=== PATIENT | female | born 1965 | race Caucasian/White ===

== ENCOUNTER 2022-06-07 12:27 | Outpatient (CLI) | payer MEDICARE, MEDICAID, SELFPAY ==
--- NOTE | 2022-06-08 10:57 | P.NEURO_ITS ---
Neurology EEG Report General Information Date of Study: 06/07/22 TEST eeg DIAGNOSIS Convulsion CONDITION OF RECORDING awake drowsy and sleep EEG NUMBER [id number] CLINICAL HISTORY patient reports she is having episodes of blacking out and confusion EEG DESCRIPTION low-voltage 15 to 18 hertz per 2nd beta activity seen during drowsiness with intermittent low-voltage 10 to 11 hertz per 2nd alpha posteriorly Bilateral symmetrical sleep activity seen during sleep with admixed beta and theta and delta activity evolving into bilateral symmetrical sleep spindles. Non paroxysmal nonfocal nonlateralizing. Hyperventilation not done photic stimul ation produced normal drive IMPRESSION normal record during wakefulness drowsiness and sleep with activating measures as well. Clinical correlation recommended
== END 2022-06-07 12:28 | disposition home or self-care (01) ==
LOC: ANHNEURO 12:29
PROVIDERS: PCP Internal Medicine Infectious Disease; Visit Provider Family Medicine
DX: R56.9 Unspecified convulsions (principal)
CPT/HCPCS: 95816

== ENCOUNTER 2023-08-18 14:43 | Outpatient (CLI) | payer MEDICARE, MEDICAID, SELFPAY ==
--- NOTE | ~2023-08-18 | CT_ITS ---
EXAMINATION: CT abdomen pelvis wo con DATE: 08/18/2023 15:32 INDICATION: Incisional hernia without obstruction. TECHNIQUE: Computed tomography (CT) of the abdomen and pelvis was performed without intravenous contr ast. Automated exposure control and iterative reconstruction technique were employed. The dose-length product was 598.05 mGy-cm. COMPARISON: CT abdomen and pelvis 04/17/2013 FINDINGS: The visualized portions of the lung bases demonstrate mild atelectasis. A calcified left jena ng nodule is consistent with old granulomatous disease. No pleural effusion. The heart size is normal . No pericardial effusion. The liver is normal. There are changes of cholecystectomy. Calcifications in the spleen are consistent with old granulomatous disease. The pancreas and adrenal glands are norm al. Right kidney are normal. There is cortical thinning of left kidney. There is no urolithiasis. The re is a ventral hernia containing nonobstructed transverse colon and small bowel. There is chronic rincon bcutaneous scarring in anterior abdominal wall at the midline. There is diverticulosis of the colon w ithout evidence of diverticulitis. The appendix is normal. There are no pathologically enlarged lymph nodes. There is no free intraperitoneal fluid. There is a 3.4 cm peripherally calcified mass in left abdomen, consistent with old fat necrosis. There is severe thoracic and lumbar spondylosis. IMPRESSION: 1. Ventral hernia containing nonobstructed colon and small bowel. Reviewed, dictated and finalized at location E.
== END 2023-08-18 14:44 | disposition home or self-care (01) ==
PROVIDERS: PCP Nurse Practitioner Family; Visit Provider Surgery
DX: K43.0 Incisional hernia with obstruction, without gangrene (principal)
CPT/HCPCS: 74176

== ENCOUNTER 2024-09-19 15:18 | Outpatient (CLI) | payer MEDICARE, MEDICAID, SELFPAY ==
--- NOTE | ~2024-09-19 | CT_ITS ---
CT Scan of the Chest without Contrast: Clinical Indication: Lung cancer screening, nicotine dependence Technique: Contiguous sections were acquired throughout the chest without intravenous contrast. Dose reduction technique was used on this scan by utilizing automated exposure control and iterative recon struction technique. The dose-length product (DLP) was 110.11 mGy-cm. Findings: There is no evidence of any significant mediastinal, hilar or axillary lymphadenopathy. The mediastin al soft tissues appear normal. There is no evidence of pleural or pericardial effusion. Calcified left lower lobe granuloma present. Lungs are otherwise clear. Images through the upper abdomen reveal densely calcified mass or lesion in the left upper quadrant m easuring 3.3 cm in diameter, stable from prior exam dated 08/18/2023, compatible with chronic fat necr osis.. Impression: Lung RADS 2: Benign appearance. 12 month follow-up screening CT advised. Reviewed, dictated and finalized at [facility]. Impression: Lung RADS 2: Benign appearance. 12 month follow-up screening CT advised.
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
--- OUTSIDE RECORDS SUMMARY | 2024-09-19 15:22 | XMS_ITS | Referral Summary ---
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 Congestive heart failure 01/03/2022 Bipolar disorder 01/03/2022 Gastroesophageal reflux disease 01/03/2022 Blood clotting disorder 01/03/2022 Type 2 diabetes mellitus 11/11/2021 Thyroid nodule 07/07/2021 Kyphosis of thoracic region 05/23/2021 Hernia of anterior abdominal wall 05/23/2021 History of total hysterectomy 08/11/2020 Tobacco dependence syndrome 09/25/2018 Benign essential hypertension 08/03/2017 Abnormal mammogram 02/28/2011 Social History Tobacco Use Types Packs/Day Years Used Date Smoking Tobacco: Every Day Cigarettes 0.3 54.5 Started: 04/03/1970 Tobacco Cessation:Ready to Q uit: No; Counseling Given: Not Answered Comments No Sex and Gender Information Value Date Recorded Sex Assigned at Not on file Legal Sex Female 6:24 AM FIRING PIN GAUGER Gender Identity Female 02/13/2022 10:59 PM FIRING PIN GAUGER Sexual Orientation Straight 02/13/2022 10 :59 PM FIRING PIN GAUGER Last Filed Vital Signs Vital Sign Reading [...] 01/03/2022 10:29 AM CDT Plan of Treatment Not on file Insurance IDPA [facility] MEDICARE ADVANTAGE [facility] MEDICARE [id number] IDPA [facility] MEDICARE ADVANTAGE [facility] MEDICARE ADVANTAGE IDPA Care Teams Human Resources Representative Relationship Specialty [place] [address] [place] [id number] PCP - General Internal Medicine 09/27/21
--- OUTSIDE RECORDS SUMMARY | 2024-09-19 15:22 | XMS_ITS | Continuity of Care Document ---
Author Organization [facility] Address [address] [place] [address] [place] [address] Phone Care Team Providers Care Record Changer Name Role Phone Jose Carrero MD Unavailable Unavailable Allergies, Adverse Reactions, Alerts Substance Reaction Status Criticality OXYCODONE HCL Active No Information Medications Medication Instructions Dosage Effective Dates (start - stop) Status Comments [place] 7.5 mg-325 mg tablet take 1 tablet by oral route 3 times every day as needed for pain 1 tablet - Active avoid driving or operate machines losartan-hydrochlo rothiazide 100 mg-25 mg tablet take 1 tablet by oral route every day 1.00 tablet - Active fenofibrate 160 mg tablet take 1 tablet (160MG) by oral route every day 160 MG - Active Zantac 150 mg tablet take 1 tablet (150MG) by oral route 2 times every day - Active Norvasc 10 mg tablet take 1 tablet (10MG) by oral route every day 10 MG - Active Procedures Procedure Date OFFICE/OUTPATIENT VISIT, EST OFFICE/OUTPATIENT VISIT, EST OFFICE/OUTPATIENT VISIT, EST OFFICE/OUTPATIENT VISIT, EST OFFICE/OUTPATIENT VISIT, EST OFFICE/OUTPATIENT VISIT, EST OFFICE/OUTPATIENT VISIT, EST OFFICE/OUTPATIENT VISIT, EST OFFICE/OUTPATIENT VISIT, EST OFFICE/OUTPATIENT VISIT, EST Advance Directives Directive Yes / No Effective Date File Name No Information Encounters Encounter Description Practice Location Reason(s) For Visit Diagnoses Date Provider Providers Copied on Encounter [facility], [address], [place], [place], [address], [place] [phone] [facility] No Information 4 Magan Garcia. [address], [place], [place], [address] , [place]. [phone] Referring Provider: Jose Carrero, [address], [place], [place], [address]. tel:[phone] OFFICE/OUTPA TIENT VISIT, [facility], [address], [place], [place], [address], [place] tel:[phone] [facility] abdominal pain (chief complaint) HTN (chief complaint) osteopenia (chief complaint) Dietary surveillance and counselingAbdominal PainHypertension, UnspecifiedOther and unspecified hyperlipidemiaDisor maggi of bone and cartilage, unspecified 4 Magan Garcia. [address], [place], [place], [address] , [place]. tel:[phone] Referring Provider: Jose Carrero, [address], [place], [place], [address]. tel:[phone] OFFICE/OUTPA TIENT VISIT, [facility], [address], [place], [place], [address], [place] tel:[phone] [facility] abdominal pain (chief complaint) HTN (chief complaint) hernia (chief complaint) Dietary surveillance and counselingAbdominal PainDisorder of bone and cartilage, unspecifiedHyperten rachell, Unspecified 4 Magan Garcia. [address], [place], [place], [address] , [place]. tel:[phone] Referring Provider: Christiana [address], [place], [place], [address]. tel:[phone] [facility], [address], [place], [place], [address], [place] [phone] [facility] No Information 4 Magan Garcia. [address], [place], [place], [address] , [place]. [phone] OFFICE/OUTPA TIENT VISIT, [facility], [address], [place], [place], [address], [place] [phone] [facility] abdominal pain (chief complaint) HLP (chief complaint) sore throat (chief complaint) Dietary surveillance and counselingAbdominal PainOther and unspecified hyperlipidemiaCervi calgia 4 Magan Garcia. [address], [place], [place], [address] , [place]. [phone] Referring Provider: Christiana [address], [place], [place], [address]. tel:[phone] OFFICE/OUTPA TIENT VISIT, [facility], [address], [place], [place], [address], [place] tel:[phone] [facility] GERD (chief complaint) abdominal pain (chief complaint) back pain (chief complaint) Dietary surveillance and counselingAbdominal PainOther ventral hernia without mention of obstruction or gangreneDisorder of bone and cartilage, unspecifiedLumbago 4 Magan Garcia. [address], [place], [place], [address] , [place]. [phone] Referring Provider: Christiana [address], [place], [place], [address]. tel:[phone] OFFICE/OUTPA TIENT VISIT, [facility], [address], [place], [place], [address], [place] [phone] [facility] GERD (chief complaint) umblical hernia (chief complaint) CHF (chief complaint) HTN (chief complaint) Dietary surveillance and counselingGERDAbdom inal PainOther ventral hernia without mention of obstruction or gangreneHypertensio n, Unspecified 0 4 Magan Garcia. [address], [place], [place], [address] , [place]. [phone] Referring Provider: Jose Carrero, [address], [place], [place], [address]. tel:[phone] OFFICE/OUTPA TIENT VISIT, [facility], [address], [place], [place], [address], [place] tel:[phone] [facility] Nausea (chief complaint) abdominal pain (chief complaint) HTN (chief complaint) osteopenia (chief complaint) Dietary surveillance and counselingAbdominal PainNausea And VomitingHypertensio n, UnspecifiedOther and unspecified hyperlipidemia 4 Magan Garcia. [address], [place], [place], [address] , [place]. tel: [phone] Referring Provider: Christiana [address], [place], [place], [address]. tel:[phone] OFFICE/OUTPA TIENT VISIT, [facility], [address], [place], [place], [address], [place] tel:[phone] [facility] abdominal pain (chief complaint) back pain (chief complaint) splenic aneurysm (chief complaint) Dietary surveillance and counselingAbdominal PainLumbagoOther ventral hernia without mention of obstruction or gangreneDisorder of bone and cartilage, unspecified 4 Magan Garcia. [address], [place], [place], [address] , [place]. [phone] Referring Provider: Chrsitiana [address], [place], [place], [address]. tel:[phone] OFFICE/OUTPA TIENT VISIT, [facility], [address], [place], [place], [address], [place] tel:[phone] [facility] preDM (chief complaint) chronic pain (chief complaint) CHF (chief complaint) Dietary surveillance and counselingMetabolic SyndromeCHRONIC PAIN NECRight Heart Failure 4 Magan Garcia. [address], [place], [place], [address] , [place]. tel:[phone] Referring Provider: Christiana [address], [place], [place], [address]. tel:[phone] OFFICE/OUTPA TIENT VISIT, [facility], [address] [place], [address], tel:[phone] [facility] HLP (chief complaint) metabolic (chief complaint) HTN (chief complaint) abd pain (chief complaint) Dietary surveillance and counselingOther and unspecified hyperlipidemiaHyper tension, UnspecifiedAbdomina l PainLumbago 4 Magan Garcia. [facility] [place] [address] , . [phone] Referring Provider: Jose Carrero, [address] [facility], [place], [place], [address]. tel:[phone] OFFICE/OUTPA TIENT VISIT, [facility], [address] [place], [address], tel:[phone] [facility] HLP (chief complaint) DM (chief complaint) HTN (chief complaint) anxiety (chief complaint) abdominal pain (chief complaint) Dietary surveillance and counselingOther and unspecified hyperlipidemiaDiabe rosa Mellitus, Adult Onset, UncontrolledHyperte nsion, UnspecifiedAbdomina l Pain 4 Magan Garcia. [address] [facility] [place] [address] , [place]. [phone] Family History Family Member Type Diagnosis Age At Onset Father Problem (finding) Cancer, bone Brother Problem (finding) Alive and well Brother Problem (finding) Diabetes mellitus Mother Problem (finding) Diabetes mellitus Payers Payer name Insurance type Covered alliance party ID Authoriza tion(s) No Information Social History Type Description Quantity Date Captured Comments Sex Female Smoking Status No Information Chief Complaint And Reason For Visit No Information Plan Of Treatment Date Type Action Status Goal Colonoscopy. Due on 014 due Goal Mammogram. Due on 4 due Goal Tobacco cessation counseling completed Goal Tobacco cessation counseling completed Goal Tobacco cessation counseling completed Goal Tobacco cessation counseling completed Goal Tobacco cessation counseling completed Goal Tobacco cessation counseling completed Goal Tobacco cessation counseling completed Goal Tobacco cessation counseling completed Goal Tobacco cessation counseling completed Goal Tobacco cessation counseling completed Referral Ordered: CT NECK SPINE W/O & W/DYE ordered Referral Ordered: CT ABDOMEN W/DYE ordered Referral Ordered: DXA BONE DENSITY, AXIAL ordered Referral Ordered: ECHO EXAM OF HEART ordered Referral Ordered: LUMBAR XRAY AP AND LAT ONLY ordered History Of Present Illness Encounter Date Complaint History Of Prese nt Illness No Information Instructions Date Instruction Additional Infor mation Dietary counseling Related to Di etary surveillance counseling Decrease caloric intake Related to Dietary surveillance counseling Decrease caloric intake Related to Dietary surveillance counseling Dietary counseling Related to Di etary surveillance counseling Decrease caloric intake Related to Dietary surveillance counseling Dietary counseling Related to Di etary surveillance counseling Dietary counseling Related to Di etary surveillance counseling Decrease caloric intake Related to Dietary surveillance counseling Dietary counseling Related to Di etary surveillance counseling Decrease caloric intake Related to Dietary surveillance counseling Dietary counseling Related to Di etary surveillance counseling Decrease caloric intake Related to Dietary surveillance counseling Dietary counseling Related to Di etary surveillance counseling Dietary counseling Related to Di etary surveillance counseling Decrease caloric intake Related to Dietary surveillance counseling Dietary counseling Related to Di etary surveillance counseling Decrease caloric intake Related to Dietary surveillance counseling Dietary counseling Related to Di etary surveillance counseling Decrease caloric intake Related to Dietary surveillance counseling Decrease caloric intake Related to Dietary surveillance counseling Dietary counseling Related to Di etary surveillance counseling Assessments Type Assessment Date No Information
--- OUTSIDE RECORDS SUMMARY | 2024-09-19 15:23 | XMS_ITS | Data Portability ---
Author Organization [facility] [employer], Main Office Address [address] [place] [address] Care Team Providers Care Religious Education Director Name Role Phone PEG LAKE Primary Care Provider PEG [place]KE Referring Provider Assessment Encounter Date Assessment Date Assessment LastModified by Organization Details LastModified Time 08/12/2024 08/12/2024 Assessment: Nicotine smoke: 1/2 ppd 1979-present = 22.5 pack years Cough Dyspnea Postnasal drip Eosinophils 160/uL Plan: The following were reviewed and explained to the patient: Lab data 09/12/22 Chest 2 views 02/17/[address] 09/28/22 no nodules PFT 11/10/22 nl FEV1/FVC, FEV1 2.13 L (96%), TLC 5.66 L (131%), RV 2.25 L (142%), DLCO 79%, DLCO/VA 101% Nicotine cessation counseling provided. [place] for quitting nicotine include getting ready, getting support and encouragement, learning new skills and behaviors and being prepared to handle slips. Tips for dealing with cravings provided. Prevention of subsequent illnesses from nicotine addiction discussed. Comorbidities include but are not limited to hypertension, cerebrovascular disease, coronary heart disease, congestive heart failure, hyperlipidemia, COPD/asthma, peptic ulcer disease, esophagitis/gastri tis, and osteoporosis. Therapy options offered include: Quitting by total abstinence Receiving nicotine replacement therapy Undergoing hypnosis Filling a bupropion or varenicline prescription Enrolling in Quit For Life program Registering at [email or web address] Making a call to 2-984-DUBX-NOW ( ). A strong, clear, personalized message was given to the patient to quit smoking. The patient was urged to set a quit date. We discussed patient's barriers to quitting and I will be of assistance when patient is ready to quit. I encouraged patient to inform friends and family of plans to quit with a request for support. I encouraged the patient to remove all cigarettes from the environment. We reviewed any previous quit attempts and lessons learned from them. I encouraged total abstinence from smoking and advised the patient that drinking alcohol and/or associating with other smokers are associated with failure or relapse. Patient can enroll in [facility]'s smoking cessation class through Archana Gayle RN at . Enrollment is free and classes are held every monday of the month from 1:30 pm to 2:30 pm at the conference room next to the cafeteria on the ground floor. The [place] Preventive Services Task Force (USPSTF) recommends annual screening for lung cancer with low-dose computed tomography (LDCT) in: 1. adults aged 50 to 80 years who have a 20 pack-year smoking history and 2. current smokers or smokers who have quit within the past 15 years. Screening should be discontinued once a person has not smoked for 15 years or develops a health problem that substantially limits life expectancy or the ability or willingness to have curative lung surgery. Resume Atrovent nasal spray 0.06% 1 spray to each nostril up to 4 times a day for postnasal drip. Cough/Dyspnea workup will be done as follows: Complete PFTs Advised to continue not to smoke. Continue albuterol HFA as needed for now. The patient does not know how to accurately administer the inhaler. Today, the patient was shown how to take this medication. The proper technique for delivering this medication was instructed. The patient expressed a clear understanding and demonstrated back how to use this medication. Without the proper technique, the patient will not reap the benefits of the treatment as the contents of the inhaler will not reach the lower airways as intended to be. Adherence to therapy is advocated. Nonadherence may lead to treatment failure, further progression of the condition, and other complications. Hospitals admissions are often the result of individuals not taking prescription medications accurately. Alternatively, greater adherence to medication regimens have shown to lower rates of hospitalization and decrease total medical costs in patients with chronic medical conditions. Advocated influenza vaccination annually and pneumonia vaccination RENATA. Advocated weight loss through diet and exercise. Patient's ideal body weight according to height and gender is up to 135 lbs. Encouraged patient to adjust caloric intake to maintain/achieve ideal body weight, emphasizing on fruits, vegetables, whole grains, and fat-free or low-fat products. These include lean meats, poultry, fish, beans, eggs, and nuts and foods that are low in saturated fats, trans-fats, cholesterol, salt (sodium), and glycemic index. Stressed the importance of regular exercise up to the patient's capacity limits. In this case, we recommend 20 min daily walking, 2 days a week of resistance training. Patient to monitor BP daily and bring records to PCP for further management. Follow-up: 1 week after PFT [email or web address] Not available 08/12/2024 15:40:53 09/03/2024 09/03/2024 This note is dictated and transcribed by [employer]. [employer] variances may occur. Despite proofreading, typographical errors may occur. Occasional wrong-word or '[id number]' substitutions may have occurred due to the inherent limitations of voice recording. Read the chart carefully and recognize, using context, where substitutions have occurred. [email or web address] Not available 09/03/2024 17:21:30 Plan of Treatment Reminders Order Date Submit Date Provider Last Modified By Organization Details Last Modified Time Details Appointments Any 15 2024 01:30P M Dai herrera MD Not available Not available Not available Establish ed Patient 15 2024 02:00P M Luis Luevano DPM Not available Not available Not available Lab HbA1c (hemoglob in A1c), blood 2024 025 [employer] [facility], [address], [place], [address], 08/24/2024 07:29:08 microalbu min, urine 2024 025 [employer] [facility], [address], [place], [address], 08/01/2024 17:18:03 CMP, serum or plasma 2024 025 [employer] [facility], [address], [place], [address], 08/24/2024 07:29:05 CBC w/ auto diff [email or web address] [facility], [address], [place], [address], 08/24/2024 07:29:07 TSH + free T4, serum [email or web address] [facility], [address], [place], [address], 08/24/2024 07:29:04 lipid panel, serum [email or web address] [facility], [address], [place], [address], 08/24/2024 07:29:02 CMP, serum or plasma 2024 025 [employer] [facility], [address], [place], [address], 07/09/2024 08:59:59 CBC w/ auto diff 2024 025 [employer] [facility], [address], [place], [address], 07/09/2024 09:00:09 TSH + free T4, serum 2024 025 [employer] [facility], [address], [place], [address], 07/09/2024 09:00:19 lipid panel, serum 2024 025 [employer] [facility], [address], [place], [address], 07/09/2024 09:00:29 HbA1c (hemoglob in A1c), blood 2024 025 [employer] [facility], [address], [place], [address], 07/09/2024 08:59:41 microalbu min, urine 2024 025 [email or web address] [facility], [address], [place], [address], 07/09/2024 08:59:50 Referral obstetric brook and gynecolog ist referral - Please call patient to schedule an appointme nt. Thank you. 2024 025 JAISON Menendez MD, [address] [facility] [address], [place], [address], 08/05/2024 12:43:13 pulmonolo gist referral - Please call patient to schedule an appintmen t. Thank you. 2024 025 [email or web address] Bates MD, [address] [place], [address], 08/01/2024 17:21:39 cardiolog ist referral - Please call patient to schedule an appointme nt. Thank you. 2024 025 [place], [address] [facility], [facility] [address], [place], [address], 08/08/2024 09:42:04 obstetric brook and gynecolog ist referral - Please call patient to schedule an appointme nt. Thank you. 2024 025 JAISON Menendez MD, [address] [facility] [address], [address], [place], [address], 07/02/2024 17:10:42 pulmonolo gist referral - Please call patient to schedule an appintmen t. Thank you. 2024 025 [email or web address] Ken Bates MD, [address] [place], [address], 07/08/2024 09:48:39 cardiolog ist referral - Please call patient to schedule an appointme nt. Thank you. 2024 025 [place], [address], [address], [place], [address], 07/08/2024 10:35:19 diabetic ophthalmo logy referral - Please call patient to schedule an appointme nt. Thank you. 2024 025 JAISON [employer], [address], [place], [address], 07/02/2024 17:40:30 podiatris t referral - Please call patient to schedule an appointme nt. Thank you. 2024 025 [email or web address] Delta Francisco DPM, [address] [facility], [facility] [address], [place], [address], 07/02/2024 16:54:52 gastroent erologist referral - Please call patient to schedule an appointme nt. Thank you. 2024 025 AJISON trivedi MD, [address] [facility] [address], [place], [address], 08/09/2024 16:30:48 urologist referral - Please call patient to schedule an appointme nt. Thank you. 2024 025 [email or web address] Yonatan Byrne MD, [address] [facility] [address], [place], [address], 07/08/2024 10:00:38 cardiolog ist referral - Please call patient to schedule an appointme nt. Thank you. 2024 025 [place], [address], [address], [place], [address], 07/08/2024 10:35:19 Procedures colonosco py screening (PROC) - Please call patient to schedule an appointme nt. Thank you. 2024 025 JAISON trivedi MD, [address], [address], [place], [address], 08/09/2024 11:28:46 Surgeries None recorded. Imaging DEXA, axial skeleton - Please call patient to schedule. 2024 025 [facility], [address], [address], [place], [address], 09/18/2024 10:25:39 LDCT, chest, for lung cancer screening - Please call patient to schedule. [email or web address] [facility], [facility] [facility] , [address], [place], [address], 08/29/2024 12:06:17 Medication Orders ipratropi um bromide 42 mcg (0.06 %) nasal spray [address], [place], [place], [id number], 08/12/2024 15:43:42 Patient TargetsNo targets recorded. Patient Instructions Encounter Date Encounter Id Patient Instructions Last Modified By Organization Details Last Modified Time 07/10/2024 [id number] PT WITH BLOARTIN G / CONSTIPATION . GARDNERS SYNDROME. RECOMMEND A COLONOSCOPY . TRY SENNA-S ALONG WITH HER LINZESS 145 MCG. D/W PT FOR PCP TO SEND HER ELSEWHERE FOR TESTING . Not available 07/10/2024 13:04:55 08/12/2024 [id number] complete PFT w/ post bronchodilator spirometry* - Please call patient to schedule. MICHELET [id number] per payor portal, ref #[id number] [email or web address] Not available 08/21/2024 15:03:57 Reason for Referral [employer] Referral for C hronic cough Please call patient to schedule an appintment. Thank you. Referring Physician: Dai Yusuf, Internal Medicine, Encounter Date: 07/02/2024 Teacher Advisor Referral for Gastroesophageal reflux disease without esophagitis Please call patient to schedule an appointment. Thank you. Referring Physician: Dai Yusuf Internal Medicine, Encounter Date: 07/02/2024 Diabetic Ophthalmology Refer ral for Type 2 diabetes mellitus without complication Please call patient to schedule an appointment. Thank you. Referring Physician: Dai Yusuf Internal Medicine, Encounter Date: 07/02/2024 Special Duty Nurse Referral for Type 2 diabetes mellitus without complication Please call patient to schedule an appointment. Thank you. Referring Physician: Dai Yusuf [facility] Medicine, Encounter Date: 07/02/2024 Supervisor Meter Shop Referral for Es sential hypertension Please call patient to schedule an appointment. Thank you. Referring Physician: Dai Yusuf [facility] Medicine, Encounter Date: 07/02/2024 Supervisor [employer] Shop Referral for Co ngestive heart failure Please call patient to schedule an appointment. Thank you. Referring Physician: Dai Yusuf [facility] Medicine, Encounter Date: 07/02/2024 Urologist Referral for Blood in urine Please call patient to schedule an appointment. Thank you. Referring Physician: Dai Yusuf [facility] Medicine, Encounter Date: 07/02/2024 Application Technical Designer And Gynecologis t Referral for Gynecologic examination Please call patient to schedule an appointment. Thank you. Referring Physician: Dai Yusuf [facility] Medicine, Encounter Date: 07/02/2024 President [employer] Referral for C hronic cough Please call patient to schedule an appintment. Thank you. Referring Physician: Dai Yusuf [facility] Medicine, Encounter Date: 08/01/2024 Supervisor Meter Shop Referral for Es sential hypertension Please call patient to schedule an appointment. Thank you. Referring Physician: Dai Yusuf [facility] Medicine, Encounter Date: 08/01/2024 Application Technical Designer And Gynecologis t Referral for Gynecologic examination Please call patient to schedule an appointment. Thank you. Referring Physician: Dai Yusuf, Internal Medicine, Encounter Date: 08/01/2024 Results Created Date Observation Date Name Description Value Unit Range Abnormal Flag Note LastModifiedBy Organization Detail LastModifiedTime 07/10/19 25 07/09/2024 US, doppl er echoc ardio gram No observ ation record ed. [address] [facility] [address], [place], [address], 08/12/2024 15:17:54 08/01/19 25 07/31/2024 NM, myoca rdial perfu rachell scan No observ ation record ed. [address] [facility] [address], [place], [address], 08/12/2024 15:18:53 Result Notes None recorded. 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 Active 2017 Not Available [facility] 3 02:09:53 Partial thickness rotator cuff tear 675500706 Active 2021 Not Available [employer] 3 02:09:53 Abdominal aortic aneurysm 823919365 Active 2018 Not Available [facility] 3 02:09:53 Gastroeso phageal reflux disease 183014493 Active Not Available [facility] 3 02:09:53 Thyroid nodule 288512960 Active 2021 Not Available [employer] 3 02:09:53 Degenerat ion of lumbar intervert ebral disc 92775543 Active 2019 Not Available [facility] 3 02:09:53 Toothache 33497757 Completed Not Available [facility] 3 07:46:11 Swelling of breast 692586229 Completed Not Available [facility] 3 07:46:11 Osteopeni a 085564083 Active Not Available [facility] 3 02:09:54 Depressiv e disorder 63535200 Completed Not Available [facility] 3 07:46:11 Osteoarth ritis 257976051 Active Not Available [employer] 3 02:09:54 Attention deficit hyperacti vity disorder 990654242 Active Not Available [facility] 3 02:09:54 Esophagea l dysphagia 90264483 Active 2018 Not Available [facility] 3 02:09:54 Degenerat jenifer disorder of macula 512776159 Active Not Available [facility] 3 02:09:54 Congestiv e heart failure 18093683 Active Not Available [facility] 3 02:09:54 Anxiety 90784175 Active Not Available [facility] 3 02:09:54 Pain of breast 90586909 Completed Not Available [facility] 3 07:46:12 Schizophr enia 05425287 Active 2018 Not Available [facility] 3 02:09:54 Essential hypertens ion 30557034 Active Not Available [facility] 3 02:09:54 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 Not Available [facility] 3 02:09:54 COVID-19 694555143 Active 2020 Not Available [facility] 3 02:09:54 Posterior rhinorrhe a 25957321 Active 2022 Not Available [facility] 3 02:09:54 Nicotine dependenc e 37953711 Active 2022 Not Available [facility] 3 02:09:54 Syncope 230649250 Active 2022 Not Available [facility] 3 02:09:53 Ventral incisiona l hernia 950327119 Active 2023 MARZENA Calixto, [facility] [employer] [facility] 4 15:52:04 Chronic constipat ion 870248328 Active 2023 MARZENA Calixto, [facility] [employer] [facility] 4 10:08:43 Hernia of anterior abdominal wall 666992895 Active 2024 Dai zavaleta MD [address], [address], [place], [address] , [employer] [facility] [employer] [facility] 5 15:13:20 Moderate recurrent major depressio n 16319297 Active 2024 Dai zavaleta MD [address], [address], [place], [address] , [employer] [facility] [employer] [facility] 5 15:17:56 Chronic cough 38272609 Active 2024 Ken Bates MD [address], [address], [place], [address] , [employer] [facility] [employer] [facility] 5 15:09:49 Low back pain 153155626 Active 2024 MARZENA Sol, [place] - [facility] [employer] [facility] 5 17:17:36 Pain of right knee region 71189228896 4105 Active 2024 MARZENA Sol, [facility] [employer] [facility] 5 14:41:17 Type 2 diabetes mellitus 80973107 Active 2024 Luis Luevano DPM [address], [address], [place], [address] , [facility] [email or web address] [facility] [employer] [facility] 5 17:21:16 Dystrophi a unguium 89591618 Active 2024 Luis Luevano DPM [address], [address], [place], [address] , [place] [employer] 17:21:26 Notes:Medical History: Synco pe Anxiety/ADHD/Schizophrenia/Bipolar depression ARMD COVID infections 03/2021, 09/2021 Rhinitis with postnasal drip Eosinophils 160/uL IgE 14 IU/mL Left thyroid nodule AAT PiMM 192 mg% Nicotine use Granulomatous disease of chest and spleen Obesity Hypertension Hyperlipidemia T2DM with microalbuminuria CHF MARTITA Ventral hernia Fatty liver Irby syndrome Diverticulosis Constipation-predominant IBS AAA Osteopenia Right thoracic scoliosis Lumbar DDD Osteopenia Procedure History: T&A 1974 Cholecystectomy 1999 Exploratory laparotomy 2005 Surgical mesh placement 2005 OFE-BSO 2021 Colonoscopy with polypectomy 2022, 2023 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 Procedures Surgical History Date Name Laterality Status Provider Name and Address Organization Details Recorded Time 09/04/19 25 Nail Debridement completed Luis Luevano DPM [address] [facility], [facility] [address], [place], [address], [employer] 09/03/2024 17:20:45 09/03/19 21 Hernia repair w/mesh completed Not Available [facility] 06/01/2022 07:41:20 04/25/19 14 Repair of stomach lesion completed Not Available [facility] 06/01/2022 07:41:20 04/25/19 14 Omental flap intra-abdom completed Not Available [facility] 06/01/2022 07:41:20 Hysterectomy completed Angela Smith [facility] [employer] [facility] 07/02/2024 15:02:25 Cholecystectomy completed Angela Smith [facility] [employer] [facility] 07/02/2024 15:02:32 Colon Resection completed Angela Smith [facility] [employer] [facility] 07/02/2024 15:02:43 Imaging Results None recorded. Procedure Notes None recorded. Medical Equipment None Reported. Allergies Allergen ID Allergen Name Allergen Category Reaction Reaction Severity Criticality Documentation Date Start Date Code Code System Note Provider Name and Address Organization Details Recorded Time 19974 Oxycontin medicatio n itching severe Not available 06/01/2022 99556 6 RxNorm Not Available [facility] 07:51:17 Medications Name Sig Start Date Stop Date Status Note LastModified by Organization Details LastModified Time amoxicillin 500 mg capsule Take 1 capsule 3 times a day by oral route. 09/25 completed Not Available Not Available Not Available atorvastati n 40 mg tablet Take 1 tablet at bedtime daily 2023 active Not Available Not Available Not Avai lable metformin 500 mg tablet Take 1 tablet twice a day by oral route. 09/12 completed Not Available Not Available Not Available clonidine HCl 0.1 mg tablet 09/24 completed Not Available Not Available Not Available prednisone 10 mg tablet 08/19 completed Not Available Not Available Not Available tizanidine 2 mg tablet Take 1 tablet every 6 hours by oral route as needed for 5 days. 07/02 completed Not Available Not Available Not Available clindamycin HCl 300 mg capsule Take 1 capsule every 8 hours by oral route as directed for 5 days. 10/20 completed Not Available Not Available Not Available azithromyci n 250 mg tablet active Not Available Not Available Not Available ibuprofen 800 mg tablet TAKE 1 TABLET BY MOUTH UP TO EVERY 6 HOURS WITH FOOD NEEDED FOR PAIN OR FEVER OR SWELLING active Not Available Not Available No t Available alprazolam 1 mg tablet 09/24 completed Not Available Not Available Not Available ondansetron HCl 4 mg tablet Take 1 tablet every day by oral route as needed. 10/14 completed Not Available Not Available Not Available Pyridium 200 mg tablet Take 1 tablet 3 times a day by oral route for 2 days. 11/10 completed Not Available Not Available Not Available penicillin V potassium 500 mg tablet active Not Available Not Available Not Available phentermine 37.5 mg tablet Take 1 tablet every day by oral route for 30 days. 08/21 completed Not Available Not Available Not Available amlodipine 5 mg tablet TAKE 1 TABLET BY MOUTH ONCE DAILY active Not Available Not Available No t Available hydrocodone 10 mg-acetamin ophen 325 mg tablet 09/24 completed Not Available Not Available Not Available peg-electro lyte solution 420 gram oral solution 07/02 completed Not Available Not Available Not Available triamcinolo ne acetonide 0.1 % topical cream APPLY A THIN LAYER TO THE AFFECTED AREA(S) BY TOPICAL ROUTE 2 TIMES PER DAY 07/02 completed Not Available Not Available Not Available prednisone 10 mg tablets in a dose pack Take 1 tab by mouth, 3 times a day for 3 daysTake 1 tab by mouth 2 times a day for 2 daysTake 1 tab by mouth once a day for 1 day 08/19 completed Not Available Not Available Not Available meloxicam 7.5 mg tablet Take 1 tablet every day by oral route for 30 days. active Not Available Not Available No t Available losartan 100 mg-hydrochl orothiazide 25 mg tablet TAKE 1 TABLET BY MOUTH DAILY 2024 active Not Available Not Available Not Avai lable oxycodone-a cetaminophe n 5 mg-325 mg tablet 08/26 completed Not Available Not Available Not Available amoxicillin 875 mg tablet Take 1 tablet every 12 hours by oral route for 10 days. 10/14 completed Not Available Not Available Not Available Klonopin 0.5 mg tablet Take 1 tablet every day by oral route. 06/06 completed Not Available Not Available Not Available Kenalog 10 mg/mL suspension for injection In office injection administe red by the provider 09/12 completed [facility] 2001: 0003- 0494- 20 Not Available Not Available Not Available amlodipine 10 mg tablet TAKE 1 TABLET BY MOUTH ONCE DAILY active Not Available Not Available No t Available doxycycline monohydrate 100 mg capsule 07/26 completed Not Available Not Available Not Available hydrocodone 7.5 mg-acetamin ophen 325 mg tablet active Not Available Not Available No t Available cephalexin 500 mg capsule 09/25 completed Not Available Not Available Not Available nystatin 100,000 unit/gram topical cream 09/12 completed Not Available Not Available Not Available ranitidine 150 mg tablet Take 1 tablet twice a day by oral route. active Not Available Not Available No t Available dextroamphe tamine-amph etamine 20 mg tablet TAKE 1 TABLET BY MOUTH DAILY active Not Available Not Available No t Available hydrochloro thiazide 12.5 mg capsule 10/14 completed Not Available Not Available Not Available diclofenac sodium 75 mg tablet,jayme yed release Take 1 tablet twice a day by oral route. 09/12 completed Not Available Not Available Not Available hydrochloro thiazide 25 mg tablet TAKE 1 TABLET EVERY DAY IN THE MORNING. 10/14 completed Not Available Not Available Not Available furosemide 20 mg tablet TAKE 1 TO 2 TABLETS BY MOUTH EVERY MORNING NEEDED FOR SWELLING 2024 active Not Available Not Available Not Avai lable albuterol sulfate HFA 90 mcg/actuati on aerosol inhaler Inhale 2 puffs every 4 hours by inhalatio n route. 06/06 completed Not Available Not Available Not Available ipratropium bromide 42 mcg (0.06 %) nasal spray [place] 1 spray 4 times a day by intranasa l route as needed. 2024 active Not Available Not Available Not Avai lable losartan 100 mg tablet TAKE 1 TABLET BY MOUTH DAILY active Not Available Not Available No t Available fluticasone propionate 50 mcg/actuati on nasal spray,suspe nsion 09/25 completed Not Available Not Available Not Available metformin ER 500 mg tablet,exte nded release 24 hr Take 1 tablet every day by oral route at bedtime. 2024 active Not Available Not Available Not Avai lable dextroamphe tamine-amph etamine 5 mg tablet TAKE ONE TABLET TWICE DAILY 08/26 completed Not Available Not Available Not Available nicotine 7 mg/24 hr daily transdermal patch Apply 1 patch every day by transderm al route. 07/02 completed Not Available Not Available Not Available hydroxyzine pamoate 25 mg capsule 08/26 completed Not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 GI Dr Cali Moderate r ecurrent major depression 79550151 F33.1 On desvenlafa xine ER 50mg dailyNot suicidal or homicidalD oes not see psychiatry and declined Constipation 22809602 K5 9.[address] Cali Cigarette smoker 8506241 7 F17.210 Smokes, advised to quit!Couns ellекатерина today LDCT on 08/08/2024 at [facility] Congestive heart failure 36753427 I50.9 Now has an apt with Dr Cramer SL 08/06/2024 Blood in urine 12684726 R31.9 Has an apt with Dr Byrne on 08/15/2024 Gynecologi c examination 53407158 Z01.419 Inguinal lymphadenopathy 458944302 R59.0 Non tender LNs noted in the delta inguinal area, no obvious swelling noted on the vulva, vaginal exam was not doneReferr ed to urology and OB [id number] Ken Bates MD [facility] Pulmonolo gy [address] [address] 08/12/2024 15:05:12 08/13/2024 13:22:20 Chronic cough 01401404 R05.3 R06.00 Posterior rhinorrhea 758 73269 R09.82 Nicotine dependence 5629 4008 F17.218 F17.219 Z87.512 [id number] Luis Luevano DPM [facility] Podiatry [place] [address] [facility] [address] [place] [address] 09/03/2024 16:31:43 09/05/2024 16:29:15 Type 2 diabetes mellitus 43872606 E11.9 Patient educated on neuropathy , diabetes, diabetic diet, and daily foot exams. Patient is to check feet daily for new wounds, blisters, redness to prevent infection and ulceration s to the feet. Patient will return to clinic in 3 months for diabetic foot workup. Dystrophia unguium 92907 009 L60.3 Nails 1 through 10 were debrided with sharp mechanical debridemen t without incident. Nails were debrided and greater than 50% length and thickness where needed. Health Concerns Section Related Observation LastModified by Organization Detai ls LastModified Time None Recorded Concern Status LastModified by Organization Details LastModified Time None Recorded Advance Directives Directive N: Payers Insurance Date Sequence Insurance Name Policy Number Policy Adamson Covered Member ID Adamson Member ID Guarantor Name 09/01/2024 1 [facility] (MEDICARE REPLACEMENT/A DVANTAGE - PPO) [id number] Monika Elena Alexander [id number] Monika L Alexander 09/01/2024 2 [place] WHEN MEDICARE OR MEDICARE REPLACEMENT PRIMARY) Monika Elena Alexander [id number] Monika L Alexander 08/28/2024 1 [facility] [id number] Monika L Alexander 08/28/2024 2 [employer] (MEDICARE REPLACEMENT/A DVANTAGE - PPO) [id number] Monika Bustamantes [id number] Monika Bustamantes Notes Date Note Type Note Provider Name and Address Organization Details Recorded Time 2024 text/h tml OV 07/02/2024:Here to establish care Present Hx:Hernia of abd wallHTNDMIIHLDGERDConstipationCHFBlood in urine Here to discuss all of the above, has also noted a lump in the L groin area, since 2 months, non tender, has also noted hematuria, not seen urology or her OB Dai Yusuf MD [address] [facility], [address], [place], [address], [facility] [employer] [facility] 5 16:01:58 2024 text/h tml MONIKA WAS SEEN IN THE OFFICE TODAY FOR A F/U OF HER BLOATING . PT HAS CONSTIPATION . SHE IS ON LINZESS 145 MCG /D. SHE STILL HAVE BMs EVERY FEW DAYS. PT NEEDS A COLONOSCOPY . BUT [facility] IS OUT OF NET WORK AT THIS TIME . PT HAS [employer]. Mayda Cali MD [address], [facility] [address], [place], [address], [facility] [employer] 5 13:05:31 2024 text/h tml OV 07/02/2024:Here to establish care Present Hx:Hernia of abd wallHTNDMIIHLDGERDConstipationCHFBlood in urine Here to discuss all of the above, has also noted a lump in the L groin area, since 2 months, non tender, has also noted hematuria, not seen urology or her OB OV 08/01/2024: Here for her f/u apt, she is doing well, has not yet done her labs Dai Yusuf MD [address], [address], [place], [address], [facility] [employer] [facility] 5 19:59:30 2024 text/h tml Primary care/Referring provider: OZZIE Mann [phone] Patient is here to go over her cough evaluation and management. Initial development of cough: uration of cough: 3 yearsNature of cough: productive of whitish sputumCondition of cough: stableTiming of cough: early in the morningFrequency: twice a dayLimits activities: yesAggravating factors: walking briskly, heatAlleviating factors: resting Treatment history: Albuterol HFA as needed since 08/2022 Other symptoms:Drooling: noDysarthria: noNeck pain: noOdynophagia: noDysphagia: noWeak mastication: noFacial weakness: noNasal speech: noProtruding tongue: noWheezing: yesChest tightness: yesOrthopnea: noFrequent throat clearing or swallowing: yesPalpitations: noHeartburn: noEdema: yes Modified [employer] [place] (mMRC) Dyspnea Scale - Grade 1Grade 0 I only get breathless with strenuous exercise .Grade 1 I get short of breath when hurrying on the level or walking up a slight hill .Grade 2 I walk slower than people of the same age on the level because of breathlessness or have to stop for breath when walking at my own pace on the level .Grade 3 I stop for breath after walking about 100 yards or after a few minutes on the level .Grade 4 I am too breathless to leave the house or I am breathless when dressing . Environmental exposures:Nicotine smoke: 1/ ppd 1979-present = 22.5 pack yearsPaint: noDye: noDust mites: yesMold: noDamp basement: noWood burning stove: noAnimal dander: catsCockroaches: noPollen: yesArsenic: noAsbestos: noBeryllium: noCadmium: noChromium: noCoal smoke: noDiesel fumes: noNickel: noSilica: noSoot: no EPWORTH SLEEPINESS SCALE (ESS) CHANCE OF DOZING SCORE0 = would never doze1 = slight chance of dozing2 = moderate chance of dozing3 = high chance of dozing SITUATION AND CHANCE OF DOZINGSitting and reading - 1Watching television - 1Sitting inactive in a public place (e.g. a theater or meeting) - 1As a passenger in a car for an hour without a break - 1Lying down to rest in the afternoon when circumstances permit - 3Sitting and talking to someone - 0Sitting quietly after lunch without alcohol - 0In a car, while stopped for a few minutes in the traffic - 0TOTAL SCORE 7Subjectively, patient has a slight chance of dozing. Ken Bates MD [address] [place] [address], [phone], [facility] [employer] 15:50:51 2024 text/h tml . Patient is a 58-year-old female diabetic she presents the office for diabetic foot care. Patient denies any numbness tingling or burning in the feet. Patient denies any recent injury or wounds. Patient states she would like her nails cut. Patient denies any other complaints. Luis Luevano DPM [address] [address], [place], [address], [place] [facility] 5 09:15:54 OBGyn Episode No OBEpisode recorded.
--- OUTSIDE RECORDS SUMMARY | 2024-09-19 15:23 | XMS_ITS | Clinical Summary ---
Author Organization [facility] Address [address] [place] [address] Care Team Providers Care Drink Mixer Name Role Phone Tae Muro MD Primary Care Provider Unavail able Elias Acosta MD Unavailable Family History Medical History Relation Comments Diabetes Mother Heart Disease Mother hypertension Mother Relation Status Comments Mother Social History Tobacco Use Types Packs/Day Years Used Date Smoking Tobacco: Every Day Cigarettes 0.5 43 Smokeless Tobacco: Never Alcohol Use Standard Drinks/Week Comments No 0 (1 standard drink = 0.6 oz pur e alcohol) AUDIT-C Answer Date Recorded Frequency of Alcohol Consumption Never 09/25/2018 Average Number of Drinks Not on file 019 Frequency of Binge Drinking Not on file 09/02 Comments Unknown Sex and Gender Information Value Date Recorded Sex Assigned at Not on file Legal Sex Female 7:49 PM CDT Gender Identity Not on file Sexual Orientation Not on file Plan of Treatment Health Maintenance Due Date Last Done Comments Colorectal Cancer Screening Colonoscopy (10 Years) 1963 Annual Physical 11/30/1966 Hepatitis C 11/30/1981 DTaP, Tdap and Td Vaccines ( 1 - Tdap) 11/30/1982 Pneumococcal Vaccine: 50+ Ye ars (1 of 2 - PCV) 11/30/1982 Mammogram Screening 2003 Zoster Vaccines (1 of 2) 11/30/2013 COVID-19 Vaccine ( - 2023-2 5 season) 2023 PHQ-2 (Physician [place]) 04/03/2024 RSV Immunization or 60+ Years (1 - 1-dose 75+ series) 11/30/2038 Meningococcal B Vaccine Aged Out No l onger eligible based on patient's age to complete this topic Meningococcal Vaccine Aged Out No olivier rony eligible based on patient's age to complete this topic RSV Immunizations Under 20 Months Aged Out No longer eligible based on patient's age to complete this topic Insurance MEDICARE MEDICAID MEDICAID Care Teams Drink Mixer Relationship Specialty Start Date End Date Tae Muro MD PCP - General FAMILY PRACTICE 09/25/18 Elias Acosta MD [address] [id number] Referring Physician VASCULAR SURGERY 09/25/18
--- OUTSIDE RECORDS SUMMARY | 2024-09-19 15:23 | XMS_ITS | Patient Health Record ---
Author Organization [facility] Address [address] [place] [address] Care Team Providers Care Cpr Ambulance Driver Name Role Phone Jd [facility] Primary Care Provider Eliana Suni [place] Unavailable [phone] Allergies Allergen (clinical drug ingredient) Drug/Non Drug Allergy documented on EMR Reaction Allergy Type Onset Date Status oxycodone OxyCONTIN Unknown Drug Allergy Active Reason For Referral No Information Medications Medication SIG (Take, Route, Frequency, Duration) Notes Start Date End Date Status ProAir HFA 108 (90 Base) MCG/ACT Inhalation Active Atorvastatin Calcium 40 MG Oral Active amLODIPine Besylate 5 MG Oral Active Ipratropium Antimony 0.06 % Nasal Active tiZANidine HCl 2 MG Oral Active predniSONE 10 MG Oral Act jenifer Losartan Potassium-HCTZ 100-25 MG Oral Active Desvenlafaxine Succinate ER 50 MG Oral Active metFORMIN HCl ER 500 MG Oral Active Suprep Bowel Prep Kit 17.5-3.13-1.6 GM/177ML Oral Activ e Diclofenac Sodium 75 MG Oral Active Nitrofurantoin Monohyd Macro 100 MG Oral Active OneTouch Verio In Vitro Activ e OneTouch Delica Plus [id number] Active Social History Sex Assigned At : Social History Observation Description Sex Assigned At Female Encounters Encounter Location Date Provider Diagnosis [facility] [address] [place] [address] 02/22/2024 Suni Griggs Plan Of Treatment No Information Insurance Providers Payer Name Payer Address Payer Phone Subscriber Number Group Number Insured Name Patient Relationship to Insured Coverage Start Date Coverage End Date [employer] Medicare Replacement/ Advantage - Ppo [address] [address] [place] [address] [id number] MONY LUKE Self - patient is the insured [place] [address] [address] [place] [address] [id number] MONY LUKE Self - patient is the insured
--- OUTSIDE RECORDS SUMMARY | 2024-09-19 15:23 | XMS_ITS | Clinical Summary ---
Author Organization [facility] Address [address] [place] [address] Care Team Providers Care Apartment Community Manager Name Role Phone Unavailable Primary Care Provider Unavailabl e Source Comments [facility],non-owned Affiliates and Associated Physician Practices is amultiple site organization consisting of ambulatory clinics and hospital sitesin [place], [place], [place] and [place]. This disclosure is being madepursuant to the Care Everywhere program and may not contain all information available regarding this patient. Last updated 17.[facility] Allergies Active Allergy Reactions Criticality Noted Date Comments Oxycodone Itching Low 03/08/2016 Medications * This document contains information received from the source organization and may not represent a complete record from that organization. * Be aware that medications may not be up to date on this document. Alwaysverify current medications with the patient. ALPRAZolam (XANAX) 1 MG tablet Take 1 mg by mouth BID. 60 tablet 0 05/11/2016 Active ondansetron, disintegrating, (ZOFRAN ODT) 4 MG tablet 04/08/2016 Active raNITIdine (ZANTAC) 150 MG tablet 01/04/2016 Active HYDROcodone-acet aminophen (NORCO) 10-325 MG tablet 02/15/2016 Active cloNIDine (CATAPRES) 0.1 MG tablet 02/09/2016 Active losartan-hydroCH LOROthiazide (HYZAAR) 100-25 MG tablet 02/23/2016 Active Social History Tobacco Use Types Packs/Day Years Used Date Smoking Tobacco: Every Day Cigarettes Alcohol Use Standard Drinks/Week Comments No 0 (1 standard drink = 0.6 oz pur e alcohol) Comments Unknown Sex and Gender Information Value Date Recorded Sex Assigned at Not on file Legal Sex Female 5:21 PM 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 DESIGN 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 Gender Identity Not on file Sexual Orientation Not on file Last Filed Vital Signs Vital Sign Reading Time Taken Comments Blood Pressure 150/85 03/08/2016 8:07 AM INTERIOR DESIGN 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 Pulse 96 03/08/2016 8:07 AM INTERIOR DESIGN 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 Temperature 37.1 C (98.8 F) 07/02/2015 11:57 AM CDT Respiratory Rate 18 03/08/2016 8:07 AM INTERIOR DESIGN 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 Oxygen Saturation 93% 07/02/2015 11:57 AM CDT Inhaled Oxygen Concentration - - Weight 85.8 kg (189 lb 4 oz) 03/08/2016 8:07 AM INTERIOR DESIGN 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 Height 165.1 cm (5' 5) 03/08/2016 8:07 AM INTERIOR DESIGN 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 Body Mass Index 31.49 03/08/2016 8:07 AM INTERIOR DESIGN 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 Plan of Treatment Health Maintenance Due Date Last Done Comments COLOGUARD (AGES 45-75) - COL ON CA SCREENING 1963 COLON MONITORING 1963 COLONOSCOPY - COLON CA SCREENING 1963 CT COLONOGRAPHY - COLON CA SCREENING 1963 Colorectal Cancer Screening 1963 FIT - COLON CA SCREENING 1963 FLEX SIG - COLON CA SCREENING 1963 LIPID TESTING 1963 MAMMOGRAM 1963 HIV SCREENING 11/30/1978 HEPATITIS C SCREENING 11/26/1981 DTAP/TDAP/TD VACCINES (1 - Tdap) 11/30/1982 PNEUMOCOCCAL VACCINE 50+ (1 of 1 - PCV) 11/30/2013 ZOSTER VACCINE (1 of 2) 11/30/2013 COVID-19 VACCINE (1 - 2023-2 5 season) 2023 DEPRESSION SCREENING 04/03/2024 INFLUENZA VACCINE (Season Ended) 2024 02/01/20 22 Respiratory Syncytial Virus (RSV) Vaccine Pt: or over 60 yrs (1 - 1-dose 75+ series) 11/30/2038 HEPATITIS B VACCINE Aged Out No longe r eligible based on patient's age to complete this topic HIB VACCINE Aged Out No longer eligi ble based on patient's age to complete this topic HPV VACCINE Aged Out No longer eligi ble based on patient's age to complete this topic MENINGOCOCCAL (Group B) VACC INE SHARED DECISION-MAKING Aged Out No longer eligibl e based on patient's age to complete this topic MENINGOCOCCAL GROUPS A/C/Y/W VACCINE Aged Out No longer eligible b ased on patient's age to complete this topic Insurance MEDICARE MEDICAID - OUT OF STATE
--- OUTSIDE RECORDS SUMMARY | 2024-09-19 15:23 | XMS_ITS | CONTINUITY OF CARE DOCUMENT ---
Author Name julia elizabethalaina Address Unknown Organization [facility] Address [address] [place] [address] Phone [phone] Care Team Providers Care Qm Nurse Name Role Phone Barbara Cramer MD Unavailable JUSTIN CASTILLO MD Unavailable JUSTIN CASTILLO MD Unavailable PROBLEMS Condition Status Date Provider Notes SPLENIC ARTERY ANEURYSM completed - Juno roman HTN- 01/08 ECHO EF 60 completed - Juno Ahmedza i OBESITY completed - Juno Ahmedzai Cardiology examination active Juno Ahmary annzai Dyspnea on exertion active Juno Ahmedzai Hypertension active Juno Ahmedzai Hyperlipidemia active Juno Ahmedzai Preoperative cardiovascular evaluation active Juno Alvarezi ENCOUNTERS Date Type Provider Location Encounter Diag nosis 08/06 - 08/06 In-person encounter Office Visit Barbara Cramer MD [facility] Office 07/08 - 07/08 In-person encounter Office Visit Barbara Cramer MD [place] [facility] SPLENIC ARTERY ANEURYSMHTN- 01/08 ECHO E F 60OBESITYCardiology examinationDyspnea on exertionHypertensionHyperlipidemiaPreoperative cardiovascular evaluation 04/14 - 04/16 In-person encounter Office Visit Sesar Woodruff MD [place] [facility] - In-person encounter Office Visit Sesar Woodruff MD [facility] VITAL SIGNS Date Observation Value Provider Body Mass Index (Ratio) 30.89 kg/m2 Piotr Cramer MD blood pressure, diastolic 80 mm[Hg] Pretty kothari Dye blood pressure, systolic 129 mm[Hg] Sruthi montoya Dye oxygen saturation, oximetry 96 % Gisselle Dye pulse rate 85 /min Gisselle Dye respiratory rate E&M 12 /min Gisselle Dye weight E&M 180 [lb_av] [facility]&M 64 [in_i] Gisselle Dye blood pressure, cuff size regular An taye Dye Body Mass Index (Ratio) 31.07 kg/m2 Piotr Cramer MD blood pressure, diastolic 81 mm[Hg] Pretty kothari Dye blood pressure, systolic 132 mm[Hg] Sruthi montoya Dye oxygen saturation, oximetry 96 % Gisselle Dye pulse rate 84 /min Gisselle [place] respiratory rate E&M 12 /min Gisselle Dye weight E&M 181 [lb_av] Gisselle [place] height E&M 64 [in_i] [facility] blood pressure, cuff size regular An taye Dye blood pressure, diastolic, left arm 73 mm [Hg] Manan Liang RN blood pressure, systolic, left arm 124 mm [Hg] Manan Liang RN blood pressure, diastolic, right arm 70 m m[Hg] Manan Liang RN blood pressure, systolic, right arm 126 m m[Hg] Manan Liang RN pulse rate 93 /min Manan Liang RN oxygen saturation, oximetry 98 % Manan Liang RN respiratory rate E&M 20 /min Manan Neha dowling RN weight E&M 190 [lb_av] Manan Liang RN blood pressure, diastolic 92 mm[Hg] Jeni Stein MA blood pressure, systolic 165 mm[Hg] Fareed Stein MA pulse rate 89 /min Molly Stein MA oxygen saturation, oximetry 98 % Molly Stein MA respiratory rate E&M 18 /min Molly Stein MA weight E&M 190 [lb_av] Molly Stein [facility] HISTORY OF MEDICATION USE Medication Status Instructions Dates Provider Indications Com william Linzess 290 mcg capsule active Juno Ahmedzai furosemide 20 mg tablet active Juno Ahmedzai losartan-hydrochl orothiazide 100-25 mg tablet active Juno Ahmedzai metformin (Glucophage XR) 500 mg tablet extended release 24 hr active Juno Ahmedzai amlodipine 5 mg tablet active Juno Ahmedzai atorvastatin 40 mg tablet active Juno Ahmedzai amlodipine 5 mg tablet completed Take 1 tablet by mouth every night - 7 Juno Ahmedzai atorvastatin 40 mg tablet completed TAKE 1 TABLET BY MOUTH ONCE A DAY - 7 Juno Ahmedzai furosemide 20 mg tablet completed TAKE 1 TABLET BY MOUTH ONCE DAILY - 7 Juno Ahmedzai Linzess 290 mcg capsule completed 1 capsule by mouth once a day - 7 Juno Ahmedzai losartan-hydrochl orothiazide 100-25 mg tablet completed Take 1 tablet by mouth once daily - 7 Juno Ahmedzai metformin (Glucophage XR) 500 mg tablet extended release 24 hr completed Take 1 tablet by mouth twice a day APPOINTMENT REQUIRED FOR FUTURE REFILLS - 7 Juno Linkmedzai metoprolol tartrate 25 mg tablet completed Take 0.5 tablet by mouth twice a day - 7 Juno Ahmedzai Klonopin 0.5 mg tablet completed tablet by mouth once a day 5 - 7 Juno Ahmedzai Toprol XL 25 mg tablet extended release 24 hr completed 1 tablet by mouth once a day 5 - 7 Juno Urbano ADIPEX-P 37.5 MG ORAL CAPSULE completed daily - 7 Molly Stein DAYANA VICODIN TABS completed as directed. 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 alcohol use no Nadine Ventimig maia RELIGIOUS EDUCATION TEACHER drug use no Nadine Ventimig maia RELIGIOUS EDUCATION TEACHER smoking status Smoker Nadine Ventim iglia RELIGIOUS EDUCATION TEACHER drug use none Juno Urbano smoking status Smoker Juno Urbano smoking/tobacco cess ation, patient education and counseling yes Sesar Woodruff MD social history reviewed E&M reviewed Manan Liang RN drug use none Sesar Woodruff MD social history E&M Marital Statu s: L qamar with family/friends E thnicity: Manan Liang RN social history reviewed E&M reviewed Manan Liang RN physical exercise, frequency, days per week yes [employer] caffeine use, averag e drinks per day yes [employer] alcohol use, average drinks per day none [employer] smoking status Smoker [facility] MENTAL STATUS Date Observation Value Provider assessment of judgme nt and insight E&M Alert and oriented to time, place and person. Mood and affect are normal. Manan Liang RN assessment of judgme nt and insight E&M Alert and oriented to time, place and person. Mood and affect are normal. Manan Liang RN INSURANCE PROVIDERS Payer name Policy type / Coverage type Carmelina red democrat ID UHC COMPLETE CARE [id number] (PPO C-SNP) [employer] insurance [employer] [id number] [facility] Medicaid 0 [id number] ADVANCE DIRECTIVES Name Date DISCUSSED - NO DECISION MADE TREATMENT PLAN Date Name Performer Cardiology: H er updated medication list for this problem includes: Atorvastatin 40 Mg Tablet (Atorvastatin) Nadinevarsha Yuenradha [facility] Cardiology:BP 129/80 and controlled. c ontinue present medication regimen H er updated medication list for this problem includes: Furosemide 20 Mg Tablet (Furosemide) Losartan-hydrochlorothiazide 100-25 Mg Tablet (Losartan-hydrochlorothiazide) Amlodipine 5 Mg Tablet (Amlodipine) Sumner Wilfridradha [facility] Cardiology:Patient h ad nuclear stress test that was negative for ischemia E cho showed EF of 70% with mild mitral annular calcifiction S he is an acceptable risk for the planned surgical procedure H er updated medication list for this problem includes: Amlodipine 5 Mg Tablet (Amlodipine) [facility] H er updated medication list for this problem includes: Micardis Hct 80-12.5 Mg Tabs (Telmisartan-hctz) ..... One tab. daily Toprol Xl 25 Mg Tb24 (Metoprolol succinate) ..... Po one tablet daily. Prior BP: 165/92 (01/16/2008) Sesar Woodruff MD office visit Sesar Bell office visit Sesar Bell office visit Sesar Bell New Pt:Needs f/u. O rders: C omplete Echo (CPT-46203) S tress Test - Nuclear (64542) Sesar Woodruff MD New Pt: O rders: C omplete Echo (CPT-40336) S tress Test - Nuclear (40910) Sesar Woodruff MD New Pt:BP elevated. Start beta blockers. H er updated medication list for this problem includes: Micardis Hct 80-12.5 Mg Tabs (Telmisartan-hctz) ..... One tab. daily BP today: 165/92 Orders: E KG (CPT-64891) Sesar Woodruff MD New Pt Sesar Bell Date Name Stress Regadenoson Complete Echo Stress Test - Nuclea r Complete Echo HISTORY OF PROCEDURES Procedure Date Procedure Name Provider Procedure Notes S tatus EKG Barbara Cramer MD completed EKG Sesar Woodruff MD complet ed
--- OUTSIDE RECORDS SUMMARY | 2024-09-19 15:23 | XMS_ITS | Clinical Summary ---
Author Organization [facility] Address [address] [address] Phone Care Team Providers Care Marketing Ambassador Name Role Phone Rodriguez Elmore MD Primary Care Provider [phone] Allergies Active Allergy Reactions Criticality Noted Date Comments Oxycodone Unknown 11/16/2016 Medications ondansetron (ZOFRAN) 4 MG Tablet Take 4 mg by mouth every 8 hours as needed for Nausea. Active amLODIPine (NORVASC) 10 MG Tablet Take 10 mg by mouth daily. Active losartan potassium-hydroc hlorothiazide (HYZAAR) 100-25 MG Tablet Take 1 Tab by mouth daily. Active amphetamine-dext roamphetamine (ADDERALL) 20 MG Tablet Take 20 mg by mouth 2 times daily. Active amphetamine-dext roamphetamine (ADDERALL) 5 MG Tablet Take 5 mg by mouth 2 times daily. Active Desvenlafaxine Succinate (PRISTIQ) 50 MG TABLET SR 24 HR Take by mouth. Active cloNIDine (CATAPRES) 0.1 MG Tablet Take 0.1 mg by mouth daily. Active ALPRAZolam (XANAX) 1 MG Tablet Take 1 mg by mouth 3 times daily as needed. Active Social History Tobacco Use Types Packs/Day Years Used Date Smoking Tobacco: Never Assessed Comments Unknown Sex and Gender Information Value Date Recorded Sex Assigned at Female 07/12/2023 10:20 PM CDT Legal Sex Female 11:27 PM CDT Gender Identity Female 07/12/2023 10:20 PM CDT Sexual Orientation Straight 07/12/2023 10 :20 PM CDT Plan of Treatment Health Maintenance Due Date Last Done Comments Hepatitis C Virus (HCV) Screening 1965 TdaP Immunization 1965 Colonoscopy 11/30/2008 Colorectal Cancer Screening 11/30/2008 Cologuard 11/30/2013 Immunochemical Fecal Occult Blood 11/30/2013 Pneumococcal Immunization (5 0+ years) (1 of 1 - PCV) 11/30/2013 Zoster Immunization (1 of 2) 11/30/2013 SARS-COV-2 Immunization (2 - season) 2023 04/04/2021 Influenza Immunization (Seas on Ended) 2024 Respiratory Syncytial Virus (RSV) Immunization (Adult) (1 - 1-dose 75+ series) 11/30/2038 Hepatitis B Immunization Aged Out No longer eligible based on patient's age to complete this topic Human Papillomavirus (HPV) Immunization Aged Out No longer eligible b ased on patient's age to complete this topic Meningococcal Immunization (ACWY) Aged Out No longer eligible based on patient's age to complete this topic Rotavirus Immunization Aged Out No lo nger eligible based on patient's age to complete this topic Insurance MEDICARE [place]ICAID [place] Care Teams Marketing Ambassador Relationship Specialty Start Date End Date Rodriguez Elmore MD [address] [address] PCP - General Family Medicine 10/10/16
== END 2024-09-19 15:19 | disposition home or self-care (01) ==
PROVIDERS: PCP Internal Medicine; Visit Provider Internal Medicine
DX: F17.210 Nicotine dependence, cigarettes, uncomplicated (principal)
CPT/HCPCS: 71271

== ENCOUNTER 2024-10-28 19:32 | Emergency (ER) | payer MEDICARE, MEDICAID, SELFPAY ==
--- OUTSIDE RECORDS SUMMARY | 2024-10-28 19:34 | XMS_ITS | Clinical Summary ---
Author Organization [facility] Address [address] [address] Phone Care Team Providers Care Yard Rigger Name Role Phone Rodriguez Elmore MD Primary Care Provider [phone] Allergies Active Allergy Reactions Criticality Noted Date [...] Virus (HCV) Screening 1965 TdaP Immunization 1965 Cologuard 11/30/2008 Colonoscopy 11/30/2008 Colorectal Cancer Screening 11/30/2008 Immunochemical Fecal Occult Blood 11/30/2008 Pneumococcal Immunization (5 0+ years) (1 of 1 - PCV) 11/30/2013 Zoster Immunization (1 of 2) 11/30/2013 SARS-COV-2 Immunization (2 - season) 2023 04/04/2021 Influenza Immunization (#1) 2024 Respiratory Syncytial Virus (RSV) Immunization (Adult) [...] topic Insurance MEDICARE [place]ICAID [place] Care Teams Yard Rigger Relationship Specialty Start Date End Date Rodriguez Elmore MD [address] [address] PCP - General Family Medicine 10/10/16
--- OUTSIDE RECORDS SUMMARY | 2024-10-28 19:34 | XMS_ITS | Continuity of Care Document ---
Author Organization [facility] Address [address] [place] [address] [place] [address] Phone Care Team Providers Care Top Edge Beveler Name Role Phone Jose Carrero MD Unavailable Unavailable Allergies, Adverse Reactions, Alerts Substance Reaction Status Criticality OXYCODONE HCL Active No Information Medications Medication Instructions Dosage Effective Dates (start - stop) Status Comments [place] 7.5 mg-325 mg tablet take 1 tablet [...] Diagnoses Date Provider Providers Copied on Encounter [facility], [address], [place], [place], [address], [place] [phone] [facility] No Information 4 Magan Garcia. [address], [place], [place], [address] , [place]. [phone] Referring Provider: Jose Carrero, [address], [place], [place], [address]. tel:[phone] OFFICE/OUTPA TIENT VISIT, [facility], [address], [place], [place], [address], [place] tel:[phone] [facility] abdominal pain (chief complaint) HTN (chief complaint) osteopenia (chief complaint) Dietary surveillance and counselingAbdominal PainHypertension, UnspecifiedOther and unspecified hyperlipidemiaDisor maggi of bone and cartilage, unspecified 4 Magan Garcia. [address], [place], [place], [address] , [place]. [phone] Referring Provider: Jose Carrero, [address], [place], [place], [address]. tel:[phone] OFFICE/OUTPA TIENT VISIT, [facility], [address], [place], [place], [address], [place] tel:[phone] [facility] abdominal pain (chief complaint) HTN (chief complaint) hernia (chief complaint) Dietary surveillance and counselingAbdominal PainDisorder of bone and cartilage, unspecifiedHyperten rachell, Unspecified 4 Magan Garcia. [address], [place], [place], [address] , [place]. tel:[phone] Referring Provider: Christiana Vincent [address], [place], [place], [address]. tel:[phone] [facility], [address], [place], [place], [address], [place] [phone] [facility] No Information 4 Magan Garcia. [address], [place], [place], [address] , [place]. [phone] OFFICE/OUTPA TIENT VISIT, [facility], [address], [place], [place], [address], [place] [phone] [facility] abdominal pain (chief complaint) HLP (chief complaint) sore throat (chief complaint) Dietary surveillance and counselingAbdominal PainOther and unspecified hyperlipidemiaCervi calgia 4 Magan Garcia. [address], [place], [place], [address] , [place]. tel:[phone] Referring Provider: Christiana [address], [place], [place], [address]. tel:[phone] OFFICE/OUTPA TIENT VISIT, [facility], [address], [place], [place], [address], [place] tel:[phone] [facility] GERD (chief complaint) abdominal pain (chief complaint) back pain (chief complaint) Dietary surveillance and counselingAbdominal PainOther ventral hernia without mention of obstruction or gangreneDisorder of bone and cartilage, unspecifiedLumbago 4 Magan Garcia. [address], [place], [place], [address] , [place]. [phone] Referring Provider: Christiana [address], [place], [place], [address]. tel:[phone] OFFICE/OUTPA TIENT VISIT, [facility], [address], [place], [place], [address], [place] [phone] [facility] GERD (chief complaint) umblical hernia (chief complaint) CHF (chief complaint) HTN (chief complaint) Dietary surveillance and counselingGERDAbdom inal PainOther ventral hernia without mention of obstruction or gangreneHypertensio n, Unspecified 0 4 Magan Garcia. [address], [place], [place], [address] , [place]. [phone] Referring Provider: Jose Carrero, [address], [place], [place], [address]. tel:[phone] OFFICE/OUTPA TIENT VISIT, [facility], [address], [place], [place], [address], [place] tel:[phone] [facility] Nausea (chief complaint) abdominal pain (chief complaint) HTN (chief complaint) osteopenia (chief complaint) Dietary surveillance and counselingAbdominal PainNausea And VomitingHypertensio n, UnspecifiedOther and unspecified hyperlipidemia 4 Magan Garcia. [address], [place], [place], [address] , [place]. [phone] Referring Provider: Christiana Vincent [address], [place], [place], [address]. tel:[phone] OFFICE/OUTPA TIENT VISIT, [facility], [address], [place], [place], [address], [place] tel:[phone] [facility] abdominal pain (chief complaint) back pain (chief complaint) splenic aneurysm (chief complaint) Dietary surveillance and counselingAbdominal PainLumbagoOther ventral hernia without mention of obstruction or gangreneDisorder of bone and cartilage, unspecified 4 Magan Garcia. [address], [place], [place], [address] , [place]. [phone] Referring Provider: Christiana [address], [place], [place], [address]. tel:[phone] OFFICE/OUTPA TIENT VISIT, [facility], [address], [place], [place], [address], [place] tel:[phone] [facility] preDM (chief complaint) chronic pain (chief complaint) CHF (chief complaint) Dietary surveillance and counselingMetabolic SyndromeCHRONIC PAIN NECRight Heart Failure 4 Magan Garcia. [address], [place], [place], [address] , [place]. tel:[phone] Referring Provider: Christiana [address], [place], [place], [address]. tel:[phone] OFFICE/OUTPA TIENT VISIT, [facility], [address] [place], [address], tel:[phone] [facility] HLP (chief complaint) metabolic (chief complaint) HTN (chief complaint) abd pain (chief complaint) Dietary surveillance and counselingOther and unspecified hyperlipidemiaHyper tension, UnspecifiedAbdomina l PainLumbago 4 Magan Garcia. [facility] [place], [address] , . [phone] Referring Provider: Jose Carrero, [address] [facility], [place], [place], [address]. tel:[phone] OFFICE/OUTPA TIENT VISIT, [facility], [address] [place], [address], tel:[phone] [facility] HLP (chief complaint) DM (chief complaint) HTN (chief complaint) anxiety (chief complaint) abdominal pain (chief complaint) Dietary surveillance and counselingOther and unspecified hyperlipidemiaDiabe rosa Mellitus, Adult Onset, UncontrolledHyperte nsion, UnspecifiedAbdomina l Pain 4 Magan Garcia. [address] [facility] [place], [address] , [place]. [phone] Family History Family Member Type Diagnosis Age At Onset Father Problem (finding) Cancer, bone Brother Problem (finding) Alive and well Brother Problem (finding) Diabetes mellitus Mother Problem (finding) Diabetes mellitus Payers Payer name Insurance type Covered democrat ID Authoriza tion(s) No Information Social History [...] caloric intake Related to Dietary surveillance counseling Assessments Type Assessment Date No Information
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
--- OUTSIDE RECORDS SUMMARY | 2024-10-28 19:34 | XMS_ITS | Referral Summary ---
Author Organization [address] Address [facility] [place] [address] Care Team Providers Care Plant And Machinery Valuer Name Role Phone Victorino Leon MD Primary Care Provider Encounters Date Type Department Care Team Description 10/17/2024 Patient Self-Triage 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 [...] (01/19/2022): Added automatically from request for surgery [id number] Urinary, incontinence, stress female 01/04/2022 Assessment & [...] not improve, I recommend her seeing a sales training manager. Congestive heart failure 01/03/2022 Bipolar disorder 01/03/2022 [...] Date Smoking Tobacco: Every Day Cigarettes 0.3 54.6 Started: 04/03/1970 Tobacco Cessation:Ready to Q uit: No; Counseling Given: Not Answered Comments No Sex and Gender Information Value Date Recorded Sex Assigned at Not on file Legal Sex Female 6:24 AM MICROARRAY ANALYST Gender Identity Female 02/13/2022 10:59 PM MICROARRAY ANALYST Sexual Orientation Straight 02/13/2022 10 :59 PM MICROARRAY ANALYST Last Filed Vital Signs Vital Sign Reading [...] Plan of Treatment Not on file Insurance [facility] MEDICARE ADVANTAGE [facility] MEDICARE [id number] IDPA [facility] MEDICARE ADVANTAGE [id number] MEDICARE ADVANTAGE IDPA Care Teams Plant And Machinery Valuer Relationship Specialty Start Date End Date Victorino Leon MD [address] [place] [address] PCP - General Internal Medicine 09/27/21
--- OUTSIDE RECORDS SUMMARY | 2024-10-28 19:34 | XMS_ITS | Clinical Summary ---
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 Congestive heart failure 01/03/2022 Bipolar disorder 01/03/2022 Gastroesophageal reflux disease 01/03/2022 Blood clotting disorder 01/03/2022 Type 2 diabetes mellitus 11/11/2021 Thyroid nodule 07/07/2021 Kyphosis of thoracic region 05/23/2021 Hernia of anterior abdominal wall 05/23/2021 History of total hysterectomy 08/11/2020 Tobacco dependence syndrome 09/25/2018 Benign essential hypertension 08/03/2017 Abnormal mammogram 02/28/2011 Encounters Date Type Department Care Team Description 10/17/2024 Patient Self-Triage [facility] [address] [place] [address] Myclesviat, Generic Provider from Last 3 Months Surgical History Surgery Date Site/Laterality Comments HYSTERECTOMY [...] Mother Jaxson kiser COPD Sister 1 Jaxson lnaa Hypertension Sister 1 Jaxson lana Diabetes Sister 2 Loni hairston Hypertension Sister 2 Loni hairston Hypertension Sister 3 Sharmin luu Relation Name Status Comments Brother Levar cshwartz Father Geovanni schwartz Mother Jaxson manningt Sister 1 Jaxson lana Sister 2 Loni hairston Sister 3 Sharmin luu Social History Tobacco Use Types Packs/Day Years Used Date Smoking Tobacco: Every Day Cigarettes 0.3 54.6 Started: 04/03/1970 Tobacco Cessation:Ready to Q uit: No; Counseling Given: Not Answered Comments No Sex and Gender Information Value Date Recorded Sex Assigned at Not on file Legal Sex Female 6:24 AM POKER SUPERVISOR Gender Identity Female 02/13/2022 10:59 PM POKER SUPERVISOR Sexual Orientation Straight 02/13/2022 10 :59 PM POKER SUPERVISOR Obstetrics History Last Filed Vital Signs Vital [...] Vaccine (2 - season) 12/03/202305/2021 Influenza Vaccine (#1) 2024 01/31/2022 DTaP/Tdap/Td Vaccine (2 - Td or Tdap) 08/25/2030 [place] [address] [facility] MEDICARE ADVANTAGE [facility] Address[facility] [address] [address] [place] [address] [facility] MEDICARE [id number] [facility] MEDICARE ADVANTAGE [facility] MEDICARE Address: [address] [address] [place] [address] [facility] MEDICARE ADVANTAGE IDPA Care Teams Director Of Property Management Relationship Specialty [place] [address] [place] [id number] PCP - General Internal Medicine 09/27/21
--- OUTSIDE RECORDS SUMMARY | 2024-10-28 19:34 | XMS_ITS | Clinical Summary ---
Author Organization [facility] Address [address] [place] [address] Care Team Providers Care Ferry Engineer Name Role Phone Unavailable Primary Care Provider Unavailabl e Source Comments [facility],non-owned Affiliates and Associated Physician Practices is amultiple site organization consisting of ambulatory clinics and hospital sitesin [place], [place], [place] and [place]. This disclosure is being madepursuant to the Care Everywhere program and may not contain all information available regarding this patient. Last updated 17.[facility] Allergies Active Allergy Reactions Criticality Noted Date [...] on file Legal Sex Female 5:21 PM CEILING INSTALLER Gender Identity Not on file Sexual Orientation Not on file Last Filed Vital Signs Vital Sign Reading Time Taken Comments Blood Pressure 150/85 03/08/2016 8:07 AM CEILING INSTALLER Pulse 96 03/08/2016 8:07 AM CEILING INSTALLER Temperature 37.1 C (98.8 F) 07/02/2015 11:57 AM CDT Respiratory Rate 18 03/08/2016 8:07 AM CEILING INSTALLER Oxygen Saturation 93% 07/02/2015 11:57 AM CDT Inhaled Oxygen Concentration - - Weight 85.8 kg (189 lb 4 oz) 03/08/2016 8:07 AM CEILING INSTALLER Height 165.1 cm (5' 5) 03/08/2016 8:07 AM CEILING INSTALLER Body Mass Index 31.49 03/08/2016 8:07 AM CEILING INSTALLER Plan of Treatment Health Maintenance Due Date [...] season) 2023 DEPRESSION SCREENING 04/03/2024 INFLUENZA VACCINE (#1) 2024 01/31/2022 Respiratory Syncytial Virus (RSV) Vaccine Pt: or [...]
--- OUTSIDE RECORDS SUMMARY | 2024-10-28 19:34 | XMS_ITS | Clinical Summary ---
Author Organization [facility] Address [address] [place] [address] Care Team Providers Care Medical Records Specialist Name Role Phone Tae Muro MD Primary [...] - 2023-2 5 season) 2023 PHQ-2 (Physician [place]) 04/03/2024 RSV Immunization or 60+ Years (1 [...] topic Insurance MEDICARE MEDICAID MEDICAID Care Teams Medical Records Specialist Relationship Specialty Start Date End Date Tae Muro MD PCP - General FAMILY PRACTICE 09/25/18 Elias Acosta MD [address] [id number] Referring Physician VASCULAR SURGERY 09/25/18
--- OUTSIDE RECORDS SUMMARY | 2024-10-28 19:34 | XMS_ITS | Patient Health Record ---
Author Organization [facility] [employer] Address [address] [place] [address] Care Team Providers Care Laboratory Director Name Role Phone Jd DEHYDROGENATION OPERATORCULLMAN REGIONAL MEDICAL CENTERLazaro Primary Care Provider Eliana Suni Moctezuma Unavailable [phone] Allergies Allergen (clinical drug ingredient) Drug/Non Drug Allergy documented on EMR Reaction Allergy Type Onset Date Status oxycodone OxyCONTIN Unknown Drug Allergy Active Reason For Referral No Information Medications Medication SIG (Take, Route, Frequency, Duration) Notes Start Date End Date Status ProAir HFA 108 (90 Base) MCG/ACT Inhalation Active Atorvastatin Calcium 40 MG Oral Active amLODIPine Besylate 5 MG Oral Active Ipratropium [place] 0.06 % Nasal Active tiZANidine HCl 2 [...] In Vitro Activ e OneTouch Delica Plus Bjzcwy34D Active Social History Sex Assigned At : Social History Observation Description Sex Assigned At Female Encounters Encounter Location Date Provider Diagnosis [facility] [address] [place] [address] 02/22/2024 Suni Griggs Plan Of Treatment No Information Insurance Providers Payer Name Payer Address Payer Phone Subscriber Number Group Number Insured Name Patient Relationship to Insured Coverage Start Date Coverage End Date [employer] Medicare Replacement/ Advantage - Ppo [address] [address] [place] [address] [id number] MONY LUKE Self - patient is the insured [place] [address] [address] [place] [address] [id number] MONY LUKE Self - patient is the insured
[2024-10-28 19:42] VITALS: BP 125/77; PULSE 95; RESP 17; TEMP 36.7; O2SAT 95
--- NOTE | 2024-10-28 21:50 | PC.NURSE ---
called to bring back to room, no answer
--- NOTE | 2024-10-28 21:59 | PC.NURSE ---
called pt from waiting room, no answer
--- OUTSIDE RECORDS SUMMARY | 2024-10-28 23:07 | XMS_ITS | Clinical Summary ---
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 [...] (01/19/2022): Added automatically from request for surgery [id number] Urinary, incontinence, stress female 01/04/2022 Assessment & [...] not improve, I recommend her seeing a traveling inventory associate. Congestive heart failure 01/03/2022 Bipolar disorder 01/03/2022 Gastroesophageal reflux disease 01/03/2022 Blood clotting disorder 01/03/2022 Type 2 diabetes mellitus 11/11/2021 Thyroid nodule 07/07/2021 Kyphosis of thoracic region 05/23/2021 Hernia of anterior abdominal wall 05/23/2021 History of total hysterectomy 08/11/2020 Tobacco dependence syndrome 09/25/2018 Benign essential hypertension 08/03/2017 Abnormal mammogram 02/28/2011 Encounters Date Type Department Care Team Description 10/17/2024 Patient Self-Triage [facility] [address] [place] [address] Myclesviat, Generic Provider from Last 3 Months [...] Mother Jaxson kiser COPD Sister 1 Jaxson lana Hypertension Sister 1 Jaxson lana Diabetes Sister 2 Loni hairston Hypertension Sister 2 Loni hairston Hypertension Sister 3 Sharmin luu Relation Name Status Comments Brother Levar schwartz Father Geovanni schwartz Mother Jaxson manningt Sister [...] on file Legal Sex Female 6:24 AM HIDE COOKING OPERATOR Gender Identity Female 02/13/2022 10:59 PM HIDE COOKING OPERATOR Sexual Orientation Straight 02/13/2022 10 :59 PM HIDE COOKING OPERATOR Obstetrics History Last Filed Vital Signs Vital [...] - Td or Tdap) 08/25/2030 Insurance IDPA [facility] MEDICARE [facility] Address: [address] [address] [place] [address] [employer] [id number] [facility] MEDICARE ADVANTAGE [facility] Address: [address] [address] [place] [address] [facility] MEDICARE ADVANTAGE IDPA Care Teams Results Engineer Relationship Specialty [place] [address] [place] [id number] PCP - General Internal Medicine 09/27/21
--- OUTSIDE RECORDS SUMMARY | 2024-10-28 23:07 | XMS_ITS | Clinical Summary ---
Author Organization [facility] Address [address] [address] Phone Care Team Providers Care Bass Viol Repairer Name Role Phone Rodriguez Elmore MD Primary Care Provider [phone] Allergies Active Allergy Reactions Criticality Noted Date [...] topic Insurance MEDICARE [place]ICAID [place] Care Teams Bass Viol Repairer Relationship Specialty Start Date End Date Rodriguez Elmore MD [address] [address] PCP - General Family Medicine 10/10/16
--- OUTSIDE RECORDS SUMMARY | 2024-10-28 23:07 | XMS_ITS | Referral Summary ---
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 Congestive heart failure 01/03/2022 Bipolar disorder 01/03/2022 [...] on file Legal Sex Female 6:24 AM CARTON LINER Gender Identity Female 02/13/2022 10:59 PM CARTON LINER Sexual Orientation Straight 02/13/2022 10 :59 PM CARTON LINER Last Filed Vital Signs Vital Sign Reading [...] Plan of Treatment Not on file Insurance [facility] MEDICARE ADVANTAGE [facility] MEDICARE [id number] [employer]PA [facility] MEDICARE ADVANTAGE [id number] ADVANTAGE IDPA Care Teams Sports Physician Relationship Specialty Start Date End Date Victorino Leon MD [address] [place] [id number] PCP - General Internal Medicine 09/27/21
--- OUTSIDE RECORDS SUMMARY | 2024-10-28 23:07 | XMS_ITS | Continuity of Care Document ---
Author Organization [facility] Address [address] [place] [address] [place] [address] Phone Care Team Providers Care Agronomy Instructor Name Role Phone Jose Carrero MD Unavailable Unavailable Allergies, Adverse Reactions, Alerts Substance Reaction Status Criticality OXYCODONE HCL Active No Information Medications Medication Instructions Dosage Effective Dates (start - stop) Status Comments Hackberry 7.5 mg-325 mg tablet take 1 tablet [...] Diagnoses Date Provider Providers Copied on Encounter [facility], [address], [place], [place], [address], [place] [phone] [facility] No Information 4 Magan Garcia. [address], [place], [place], [address] , [place]. [phone] Referring Provider: Jose Carrero, [address], [place], [place], [address]. tel:[phone] OFFICE/OUTPA TIENT VISIT, [facility], [address], [place], [place], [address], [place] tel:[phone] [facility] abdominal pain (chief complaint) HTN (chief complaint) osteopenia (chief complaint) Dietary surveillance and counselingAbdominal PainHypertension, UnspecifiedOther and unspecified hyperlipidemiaDisor maggi of bone and cartilage, unspecified 4 Magan Garcia. [address], [place], [place], [address] , [place]. tel:[phone] Referring Provider: Jose Carrero, [address], [place], [place], [address]. tel:[phone] OFFICE/OUTPA TIENT VISIT, [facility], [address], [place], [place], [address], [place] tel:[phone] [facility] abdominal pain (chief complaint) HTN (chief complaint) hernia (chief complaint) Dietary surveillance and counselingAbdominal PainDisorder of bone and cartilage, unspecifiedHyperten rachell, Unspecified 4 Magan Garcia. [address], [place], [place], [address] , [place]. tel:[phone] Referring Provider: Christiana [address], [place], [place], [address]. tel:[phone] [facility], [address], [place], [place], [address], [place] [phone] [facility] No Information 4 Magan Garcia. [address], [place], [place], [address] , [place]. [phone] OFFICE/OUTPA TIENT VISIT, [facility], [address], [place], [place], [address], [place] [phone] [facility] abdominal pain (chief complaint) HLP (chief complaint) sore throat (chief complaint) Dietary surveillance and counselingAbdominal PainOther and unspecified hyperlipidemiaCervi calgia 4 Magan Garcia. [address], [place], [place], [address] , [place]. tel:[phone] Referring Provider: Christiana [address], [place], [address]. tel:[phone] OFFICE/OUTPA TIENT VISIT, [facility], [address], [place], [address], [place] tel:[phone] [facility] GERD (chief complaint) abdominal pain (chief complaint) back pain (chief complaint) Dietary surveillance and counselingAbdominal PainOther ventral hernia without mention of obstruction or gangreneDisorder of bone and cartilage, unspecifiedLumbago 4 Magan Garcia. [address], [place], [place], [address] , [place]. [phone] Referring Provider: Christiana [address], [place], [place], [address]. tel:[phone] OFFICE/OUTPA TIENT VISIT, [facility], [address], [place], [address], [place] [phone] [facility] GERD (chief complaint) umblical hernia (chief complaint) CHF (chief complaint) HTN (chief complaint) Dietary surveillance and counselingGERDAbdom inal PainOther ventral hernia without mention of obstruction or gangreneHypertensio n, Unspecified 0 4 Magan Garcia. [address], [place], [address] , [place]. [phone] Referring Provider: Jose Carrero, [address], [place], [place], [address]. tel:[phone] OFFICE/OUTPA TIENT VISIT, [facility], [address], [place], [place], [address], [place] tel:[phone] [facility] Nausea (chief complaint) abdominal pain (chief complaint) HTN (chief complaint) osteopenia (chief complaint) Dietary surveillance and counselingAbdominal PainNausea And VomitingHypertensio n, UnspecifiedOther and unspecified hyperlipidemia 4 Magan Garcia. [address], [place], [place], [address] , [place]. [phone] Referring Provider: Christiana [address], [place], [address]. tel:[phone] OFFICE/OUTPA TIENT VISIT, [facility], [address], [place], [address], [place] tel:[phone] [facility] abdominal pain (chief complaint) back pain (chief complaint) splenic aneurysm (chief complaint) Dietary surveillance and counselingAbdominal PainLumbagoOther ventral hernia without mention of obstruction or gangreneDisorder of bone and cartilage, unspecified 4 Magan Garcia. [address], [place], [address] , [place]. [phone] Referring Provider: Christiana [address], [place], [place], [address]. tel:[phone] OFFICE/OUTPA TIENT VISIT, [facility], [address], [place], [place], [address], [place] tel:[phone] [facility] preDM (chief complaint) chronic pain (chief complaint) CHF (chief complaint) Dietary surveillance and counselingMetabolic SyndromeCHRONIC PAIN NECRight Heart Failure 4 Magan Garcia. [address], [place], [place], [address] , [place]. tel:[phone] Referring Provider: Christiana [address], [place], [place], [address]. tel:[phone] OFFICE/OUTPA TIENT VISIT, [facility], [address] [place], [address], tel:[phone] [facility] HLP (chief complaint) metabolic (chief complaint) HTN (chief complaint) abd pain (chief complaint) Dietary surveillance and counselingOther and unspecified hyperlipidemiaHyper tension, UnspecifiedAbdomina l PainLumbago 4 Magan Garcia. [address] [facility] [place] [address] , . [phone] Referring Provider: Jose Carrero, [address] [facility], [place], [place], [address]. tel:[phone] OFFICE/OUTPA TIENT VISIT, [facility], [address] [place], [address], tel:[phone] [facility] HLP (chief complaint) DM (chief complaint) HTN (chief complaint) anxiety (chief complaint) abdominal pain (chief complaint) Dietary surveillance and counselingOther and unspecified hyperlipidemiaDiabe rosa Mellitus, Adult Onset, UncontrolledHyperte nsion, UnspecifiedAbdomina l Pain 4 Magan Garcia. [address] [facility] [place], [address] , [place]. [phone] Family History Family Member Type Diagnosis Age [...]
--- OUTSIDE RECORDS SUMMARY | 2024-10-28 23:07 | XMS_ITS | Clinical Summary ---
Author Organization [facility] Address [address] [place] [address] Care Team Providers Care Dry Man Name Role Phone Tae Muro MD Primary [...] - 2023-2 5 season) 2023 PHQ-2 (Physician Ash) 04/03/2024 RSV Immunization or 60+ Years (1 [...] topic Insurance MEDICARE MEDICAID MEDICA[place] Care Teams Dry Man Relationship Specialty Start Date End Date Tae Muro MD PCP - General FAMILY PRACTICE 09/25/18 Elias Acosta MD [address] [id number] Referring Physician VASCULAR SURGERY 09/25/18
--- OUTSIDE RECORDS SUMMARY | 2024-10-28 23:08 | XMS_ITS | Clinical Summary ---
Author Organization [facility] Address [address] [place] [address] Care Team Providers Care Bullet Swaging Machine Adjuster Name Role Phone Unavailable Primary Care Provider Unavailabl e Source Comments [facility],non-owned Affiliates and Associated Physician Practices is amultiple site organization consisting of ambulatory clinics and hospital sitesin [place], [place], [place] and [place]. This disclosure is being madepursuant to the Care Everywhere program and may not contain all information available regarding this patient. 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 Gender Identity Not on file Sexual Orientation Not on file Last Filed Vital Signs Vital Sign Reading Time Taken Comments Blood Pressure 150/85 03/08/2016 8:07 AM DIE CAST TECHNICIAN Pulse 96 03/08/2016 8:07 AM DIE CAST TECHNICIAN Temperature 37.1 C (98.8 F) 07/02/2015 11:57 AM CDT Respiratory Rate 18 03/08/2016 8:07 AM DIE CAST TECHNICIAN Oxygen Saturation 93% 07/02/2015 11:57 AM CDT Inhaled Oxygen Concentration - - Weight 85.8 kg (189 lb 4 oz) 03/08/2016 8:07 AM DIE CAST TECHNICIAN Height 165.1 cm (5' 5) 03/08/2016 8:07 AM DIE CAST TECHNICIAN Body Mass Index 31.49 03/08/2016 8:07 AM DIE CAST TECHNICIAN Plan of Treatment Health Maintenance Due Date [...]
== END 2024-10-28 21:50 | disposition left against medical advice (07) ==
PROVIDERS: PCP Nurse Practitioner Family
DX: T23.402A Corrosion of unspecified degree of left hand, unspecified site, initial encounter (principal)
CPT/HCPCS: 99199

== ENCOUNTER 2025-01-01 03:26 | Day surgery (SDC) | payer MEDICARE, MEDICAID, SELFPAY ==
[2024-09-23 14:01] VITALS: BMI 30.9
--- OUTSIDE RECORDS SUMMARY | 2024-10-08 02:24 | XMS_ITS | Patient Health Record ---
Author Organization [facility] [employer] [facility] Address [address] [place] [address] Care Team Providers Care Ocean Transportation Intermediary Name Role Phone Jd MACHINE MAINTENANCE REPAIREREASTPOINTE HOSPITALLazaro Primary Care Provider Eliana Suni [place] Unavailable [phone] Allergies Allergen (clinical drug ingredient) Drug/Non Drug Allergy documented on EMR Reaction Allergy Type Onset Date Status OxyCONTIN Unknown Drug Allergy Active Reason For Referral No Information Medications Medication SIG (Take, Route, Frequency, Duration) Notes Start Date End Date Status ProAir HFA 108 (90 Base) MCG/ACT Inhalation Active Atorvastatin Calcium 40 MG Oral Active amLODIPine Besylate 5 MG Oral Active Ipratropium [place] 0.06 % Nasal Active tiZANidine HCl 2 [...] In Vitro Activ e OneTouch Delica Plus [id number] Active Social History Sex Assigned At : Social History Observation Description Sex Assigned At Female Encounters [facility] [address] [place] [address] 02/22/2024 Suni Griggs Plan Of Treatment No Information Insurance Providers Payer Name Payer Address Payer Phone Subscriber Number Group Number Insured Name Patient Relationship to Insured Coverage Start Date Coverage End Date [employer] Medicare Replacement/ Advantage - Ppo [address] [address] [place] [address] [id number] MONY LUKE Self - patient is the insured [place] [address] [address] [place] [address] [id number] MONY LUKE Self - patient is the insured
--- OUTSIDE RECORDS SUMMARY | 2024-10-08 02:24 | XMS_ITS | Clinical Summary ---
Author Organization [facility] Address [address] [address] Phone Care Team Providers Care Control Systems Designer Name Role Phone Rodriguez Elmore MD Primary Care Provider [phone] Allergies Active Allergy Reactions Criticality Noted Date [...] topic Insurance MEDICARE [place]ID [place] Care Teams Control Systems Designer Relationship Specialty Start Date End Date Rodriguez Elmore MD [address] [address] PCP - General Family Medicine 10/10/16
--- OUTSIDE RECORDS SUMMARY | 2024-10-08 02:24 | XMS_ITS | Clinical Summary ---
Author Organization [facility] Address [address] [place] [address] Care Team Providers Care Eeler Name Role Phone Tae Muro MD Primary [...] - 2023-2 5 season) 2023 PHQ-2 (Physician [facility] [place]) 04/03/2024 RSV Immunization or 60+ Years (1 [...] topic Insurance MEDICARE MEDICAID MEDICAID Care Teams Eeler Relationship Specialty Start Date End Date Tae Muro MD PCP - General FAMILY PRACTICE 09/25/18 Elias Acosta MD [address] [id number] Referring Physician VASCULAR SURGERY 09/25/18
--- OUTSIDE RECORDS SUMMARY | 2024-10-08 02:24 | XMS_ITS | Continuity of Care Document ---
Author Organization [facility] Address [address] [place] [address] [place] [address] Phone Care Team Providers Care Data Warehouse Specialist Name Role Phone Jose Carrero MD Unavailable Unavailable Allergies, Adverse Reactions, Alerts Substance Reaction Status Criticality OXYCODONE HCL Active No Information Medications Medication Instructions Dosage Effective Dates (start - stop) Status Comments [place] 7.5 mg-325 mg tablet take 1 tablet [...] Diagnoses Date Provider Providers Copied on Encounter [facility], [address], [place], [place], [address], [place] [phone] [facility] No Information 4 Magan Garcia. [address], [place], [place], [address] , [place]. tel:[phone] Referring Provider: Jose Carrero, [address], [place], [place], [address]. tel:[phone] OFFICE/OUTPA TIENT VISIT, [facility], [address], [place], [place], [address], [place] tel:[phone] [facility] abdominal pain (chief complaint) HTN (chief complaint) osteopenia (chief complaint) Dietary surveillance and counselingAbdominal PainHypertension, UnspecifiedOther and unspecified hyperlipidemiaDisor maggi of bone and cartilage, unspecified 4 Magan Garcia. [address], [place], [place], [address] , [place]. tel:[phone] Referring Provider: Jose Carrero, [address], [place], [place], [address]. tel:[phone] OFFICE/OUTPA TIENT VISIT, [facility], [address], [place], [place], [address], [place] tel:[phone] [facility] abdominal pain (chief complaint) HTN (chief complaint) hernia (chief complaint) Dietary surveillance and counselingAbdominal PainDisorder of bone and cartilage, unspecifiedHyperten rachell, Unspecified 4 Magan Garcia. [address], [place], [place], [address] , [place]. tel:[phone] Referring Provider: Christiana [address], [place], [place], [address]. tel:[phone] [facility], [address], [place], [place], [address], [place] [phone] [facility] No Information 4 Magan Garcia. [address], [place], [place], [address] , [place]. [phone] OFFICE/OUTPA TIENT VISIT, [facility], [address], [place], [place], [address], [place] [phone] [facility] abdominal pain (chief complaint) HLP (chief complaint) sore throat (chief complaint) Dietary surveillance and counselingAbdominal PainOther and unspecified hyperlipidemiaCervi calgia 4 Magan Garcia. [address], [place], [place], [address] , [place]. tel:[phone] Referring Provider: Christiana [address], [place], [place], [address]. tel:[phone] OFFICE/OUTPA TIENT VISIT, [facility], [address], [place], [place], [address], [place] tel:[phone] [facility] GERD (chief complaint) abdominal pain (chief complaint) back pain (chief complaint) Dietary surveillance and counselingAbdominal PainOther ventral hernia without mention of obstruction or gangreneDisorder of bone and cartilage, unspecifiedLumbago 4 Magan Garcia. [address], [place], [place], [address] , [place]. [phone] Referring Provider: Christiana [address], [place], [place], [address]. tel:[phone] OFFICE/OUTPA TIENT VISIT, [facility], [address], [place], [place], [address], [place] [phone] [facility] GERD (chief complaint) umblical hernia (chief complaint) CHF (chief complaint) HTN (chief complaint) Dietary surveillance and counselingGERDAbdom inal PainOther ventral hernia without mention of obstruction or gangreneHypertensio n, Unspecified 0 4 Magan Garcia. [address], [place], [place], [address] , [place]. [phone] Referring Provider: Jose Carrero, [address], [place], [place], [address]. tel:[phone] OFFICE/OUTPA TIENT VISIT, [facility], [address], [place], [place], [address], [place] tel:[phone] [facility] Nausea (chief complaint) abdominal pain (chief complaint) HTN (chief complaint) osteopenia (chief complaint) Dietary surveillance and counselingAbdominal PainNausea And VomitingHypertensio n, UnspecifiedOther and unspecified hyperlipidemia 4 Magan Garcia. [address], [place], [place], [address] , [place]. [phone] Referring Provider: Christiana [address], [place], [place], [address]. tel:[phone] OFFICE/OUTPA TIENT VISIT, [facility], [address], [place], [place], [address], [place] tel:[phone] [facility] abdominal pain (chief complaint) back pain (chief complaint) splenic aneurysm (chief complaint) Dietary surveillance and counselingAbdominal PainLumbagoOther ventral hernia without mention of obstruction or gangreneDisorder of bone and cartilage, unspecified 4 Magan Garcia. [address], [place], [place], [address] , [place]. [phone] Referring Provider: Christiana [address], [place], [place], [address]. tel:[phone] OFFICE/OUTPA TIENT VISIT, [facility], [address], [place], [place], [address], [place] tel:[phone] [facility] preDM (chief complaint) chronic pain (chief complaint) CHF (chief complaint) Dietary surveillance and counselingMetabolic SyndromeCHRONIC PAIN NECRight Heart Failure 4 Magan Garcia. [address], [place], [place], [address] , [place]. tel:[phone] Referring Provider: Christiana Vincent [address], [place], [place], [address]. tel:[phone] OFFICE/OUTPA TIENT VISIT, [facility], [address] [place] [place], [address], tel:[phone] [facility] HLP (chief complaint) metabolic (chief complaint) HTN (chief complaint) abd pain (chief complaint) Dietary surveillance and counselingOther and unspecified hyperlipidemiaHyper tension, UnspecifiedAbdomina l PainLumbago 4 Magan Garcia. [address] [facility] [address] [place], [address] , . tel:[phone] Referring Provider: Jose Carrero, [address] [place], [place], [address]. tel:[phone] OFFICE/OUTPA TIENT VISIT, [facility], [address] [place] [place], [place], [address], tel:[phone] [facility] HLP (chief complaint) DM (chief complaint) HTN (chief complaint) anxiety (chief complaint) abdominal pain (chief complaint) Dietary surveillance and counselingOther and unspecified hyperlipidemiaDiabe rosa Mellitus, Adult Onset, UncontrolledHyperte nsion, UnspecifiedAbdomina l Pain 4 Magan Garcia. [address] [facility] [place], [place], [address] , . [phone] Family History Family Member Type Diagnosis Age At Onset Father Problem (finding) Cancer, bone Brother Problem (finding) Alive and well Brother Problem (finding) Diabetes mellitus Mother Problem (finding) Diabetes mellitus Payers Payer name Insurance type Covered republican ID Authoriza tion(s) No Information Social History Type Description Quantity Date Captured Comments Sex Female Smoking Status No Information Chief Complaint And Reason For Visit No Information Plan Of Treatment Date Type Action Status Goal Mammogram. Due on 4 due Goal Colonoscopy. Due on 014 due Goal Tobacco cessation counseling completed Goal [...]
--- OUTSIDE RECORDS SUMMARY | 2024-10-08 02:25 | XMS_ITS | Clinical Summary ---
Author Organization [facility] [employer] Address [address] [place] [address] Care Team Providers Care Field Technical Support Consultant Name Role Phone Unavailable Primary Care Provider Unavailabl e Source Comments [facility] [employer],non-owned Affiliates and Associated Physician Practices is amultiple site organization consisting of ambulatory clinics and hospital sitesin [place], [place], [place] and [place]. This disclosure is being madepursuant to the Care Everywhere program and may not contain all information available regarding this patient. Last updated 17.[facility] [employer] Allergies Active Allergy Reactions Criticality Noted Date [...] on file Legal Sex Female 5:21 PM BUY BOAT OPERATOR Gender Identity Not on file Sexual Orientation Not on file Last Filed Vital Signs Vital Sign Reading Time Taken Comments Blood Pressure 150/85 03/08/2016 8:07 AM BUY BOAT OPERATOR Pulse 96 03/08/2016 8:07 AM BUY BOAT OPERATOR Temperature 37.1 C (98.8 F) 07/02/2015 11:57 AM CDT Respiratory Rate 18 03/08/2016 8:07 AM BUY BOAT OPERATOR Oxygen Saturation 93% 07/02/2015 11:57 AM CDT Inhaled Oxygen Concentration - - Weight 85.8 kg (189 lb 4 oz) 03/08/2016 8:07 AM BUY BOAT OPERATOR Height 165.1 cm (5' 5) 03/08/2016 8:07 AM BUY BOAT OPERATOR Body Mass Index 31.49 03/08/2016 8:07 AM BUY BOAT OPERATOR Plan of Treatment Health Maintenance Due Date [...]
--- OUTSIDE RECORDS SUMMARY | 2024-10-08 02:25 | XMS_ITS | Data Portability ---
Author Organization [place] - [facility] hiogi, Main Office Address [address] [place] [address] Care Team Providers Care School Year Nanny Name Role Phone [place] Primary Care Provider [phone] [place] Referring Provider Assessment Encounter Date [...] 79%, DLCO/[place] 101% Nicotine cessation counseling provided. [place] for quitting nicotine include getting ready, getting [...] in Quit For Life program Registering at [email or web address] Making a call to 3-637-NPHT-NOW ( ). A strong, clear, personalized message [...] failure or relapse. Patient can enroll in [facility]'s smoking cessation class through Archana Gayle [...] This note is dictated and transcribed by i[employer]Cloud Direct Software. Home Demonstrator variances may occur. Despite proofreading, typographical errors may occur. Occasional wrong-word or 'eyetu-k-iudn' substitutions may have occurred due to the [...] HbA1c (hemoglob in A1c), blood 2024 025 [employer] [facility], [address], [place], [address], 08/24/2024 07:29:08 microalbu min, urine 2024 025 [employer] [facility], [address], [place], [address], 08/01/2024 17:18:03 CMP, serum or plasma 2024 025 [employer] [facility], [address], [place], [address], 08/24/2024 07:29:05 CBC w/ auto diff 2024 025 [facility], [address], [place], [address], 08/24/2024 07:29:07 TSH + free T4, serum 2024 025 [facility], [address], [place], [address], 08/24/2024 07:29:04 lipid panel, serum 2024 025 [facility], [address], [place], [address], 08/24/2024 07:29:02 CMP, serum or plasma 2024 025 [facility], [address], [place], [address], 07/09/2024 08:59:59 CBC w/ auto diff 2024 025 [email or web address], [address], [place], [address], 07/09/2024 09:00:09 TSH + free T4, serum 2024 025 [email or web address], [address], [place], [address], 07/09/2024 09:00:19 lipid panel, serum 2024 025 [facility], [address], [place], [address], 07/09/2024 09:00:29 HbA1c (hemoglob in A1c), blood 2024 025 [email or web address] [facility], [address], [place], [address], 07/09/2024 08:59:41 microalbu min, urine 2024 025 [email or web address] [facility], [address], [place], [address], 07/09/2024 08:59:50 Referral obstetric brook and gynecolog ist referral - Please call patient to schedule an appointme nt. Thank you. 2024 025 JAISON Menendez MD, [address] [facility] [address], [place], [address], 08/05/2024 12:43:13 pulmonolo gist referral - Please call patient to schedule an appintmen t. Thank you. 2024 025 judd Bates MD, [address] [place], [address], 08/01/2024 17:21:39 cardiolog ist referral - Please call patient to schedule an appointme nt. Thank you. 2024 025 [place], [address] [facility], [place], [address], 08/08/2024 09:42:04 obstetric brook and gynecolog ist referral - Please call patient to schedule an appointme nt. Thank you. 2024 025 [email or web address] Menendez MD, [address] [facility] [address], [address], [place], [address], 09/30/2024 09:47:41 pulmonolo gist referral - Please call patient to schedule an appintmen t. Thank you. 2024 025 CLARA Bates MD, [address] [place], [address], 10/06/2024 04:06:08 cardiolog ist referral - Please call patient to schedule an appointme nt. Thank you. 2024 025 [place], [address], [address], [place], [address], 10/06/2024 04:06:08 diabetic ophthalmo logy referral - Please call patient to schedule an appointme nt. Thank you. 2024 025 [email or web address] [place] [employer] [place], [facility], [address], [place], [address], 09/30/2024 09:47:25 podiatris t referral - Please call patient to schedule an appointme nt. Thank you. 2024 025 [email or web address] Delta Francisco DPM, [address] [facility], [address], [place], [address], 09/30/2024 09:47:25 gastroent erologist referral - Please call patient to schedule an appointme nt. Thank you. 2024 025 JAISON trivedi MD, [address] [facility] [address], [place], [address], 08/09/2024 16:30:48 urologist referral - Please call patient to schedule an appointme nt. Thank you. 2024 025 CLARA Byrne MD, [address], [address], [place], [address], 10/06/2024 04:06:09 cardiolog ist referral - Please call patient to schedule an appointme nt. Thank you. 2024 025 [place], [address], [address], [place], [address], 10/06/2024 04:06:09 Procedures colonosco py screening (PROC) - Please call patient to schedule an appointme nt. Thank you. 2024 025 JAISON trivedi MD, [address], [address], [place], [address], 08/09/2024 11:28:46 Surgeries None recorded. Imaging DEXA, axial skeleton - Please call patient to schedule. 2024 025 [email or web address] [facility], [address], [address], [place], [address], 10/02/2024 09:06:30 LDCT, chest, for lung cancer screening - Please call patient to schedule. 2024 025 [email or web address] [facility], [facility] , [address], [place], [address], 08/29/2024 12:06:17 Medication Orders ipratropi um bromide 42 mcg (0.06 %) nasal spray [address] , [address], [place], [place], [address], 08/12/2024 15:43:42 Patient TargetsNo targets recorded. Patient Instructions Encounter Date Encounter Id Patient Instructions Last Modified By Organization Details Last Modified Time 07/10/2024 [id number] PT WITH BLOARTIN G / CONSTIPATION . GARDNERS SYNDROME. RECOMMEND A COLONOSCOPY . TRY SENNA-S ALONG WITH HER LINZESS 145 MCG. D/W PT FOR PCP TO SEND HER ELSEWHERE FOR TESTING . [email or web address] Not available 07/10/2024 13:04:55 08/12/2024 [id number] complete PFT w/ post bronchodilator spirometry* - Please call patient to schedule. MICHELET [id number] per payor portal, ref #[id number] [email or web address] Not available 10/03/2024 14:58:01 Reason for Referral Pattern Marking Supervisor Referral for C hronic cough Please call patient to schedule an appintment. Thank you. Referring Physician: Dai Yusuf Internal Medicine, Encounter Date: 07/02/2024 Sports Equipment Supervisor Referral for Gastroesophageal reflux disease without esophagitis Please call patient to schedule an appointment. Thank you. Referring Physician: Dai Yusuf Internal Medicine, Encounter Date: 07/02/2024 Diabetic Ophthalmology Refer ral for Type 2 diabetes mellitus without complication Please call patient to schedule an appointment. Thank you. Referring Physician: Dai Yusuf Internal Medicine, Encounter Date: 07/02/2024 Valve Repairer Reclamation Referral for Type 2 diabetes mellitus without complication Please call patient to schedule an appointment. Thank you. Referring Physician: Dai Yusuf Internal Medicine, Encounter Date: 07/02/2024 Balance Wheel Facer Referral for Es sential hypertension Please call patient to schedule an appointment. Thank you. Referring Physician: Dai Yusuf Internal Medicine, Encounter Date: 07/02/2024 Balance Wheel Facer Referral for Co ngestive heart failure Please call patient to schedule an appointment. Thank you. Referring Physician: Dai Yusuf Internal Medicine, Encounter Date: 07/02/2024 Urologist Referral for Blood in urine Please call patient to schedule an appointment. Thank you. Referring Physician: Dai Yusuf Internal Medicine, Encounter Date: 07/02/2024 Bridge Teacher And Gynecologis t Referral for Gynecologic examination Please call patient to schedule an appointment. Thank you. Referring Physician: Dai Yusuf Internal Medicine, Encounter Date: 07/02/2024 Pattern Marking Supervisor Referral for C hronic cough Please call patient to schedule an appintment. Thank you. Referring Physician: Dai Yusuf Internal Medicine, Encounter Date: 08/01/2024 Balance Wheel Facer Referral for Es sential hypertension Please call patient to schedule an appointment. Thank you. Referring Physician: Dai Yusuf Internal Medicine, Encounter Date: 08/01/2024 Bridge Teacher And Gynecologis t Referral for Gynecologic examination Please call patient to schedule an appointment. Thank you. Referring Physician: Dai Yusuf, Internal Medicine, Encounter Date: 08/01/2024 Results Created Date Observation Date Name Description Value Unit Range Abnormal Flag Note LastModifiedBy Organization Detail LastModifiedTime 07/10/19 25 07/09/2024 US, doppl er echoc ardio gram No observ ation record ed. [address] [facility] [address], [place], [address], 08/12/2024 15:17:54 08/01/19 25 07/31/2024 NM, myoca rdial perfu rachell scan No observ ation record ed. [address] [facility] [address], [place], [address], 08/12/2024 15:18:53 09/20/19 25 09/19/2024 LDCT, chest , for lung cance r scree angelica No observ ation record ed. [facility] [address], [place], [address], 09/19/2024 20:42:08 Result Notes None recorded. Problems Name Problem SNOMED Code Status Onset Date Resolution Date Notes Provider Name and Address Organization Details Recorded Time Irritable bowel syndrome 27672943 Active Not Available [facility] 3 02:09:53 Burn 740997590 Completed Not Available [facility] 3 07:46:09 Bipolar disorder 70674944 Active Not Available [facility] 3 02:09:53 Chondroma lacia of right patella 58464999427 305319 Active 2021 Not Available 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 Active 2017 Not Available [facility] 3 02:09:53 Partial thickness rotator cuff tear 950396802 Active 2021 Not Available [facility] 3 02:09:53 Abdominal aortic aneurysm 133115023 Active 2018 Not Available [facility] 3 02:09:53 Gastroeso phageal reflux disease 442740093 Active Not Available [facility] 3 02:09:53 Thyroid nodule 260223523 Active 2021 Not Available [facility] 3 02:09:53 Degenerat ion of lumbar intervert ebral disc 24405862 Active 2019 Not Available [facility] 3 02:09:53 Toothache 84096494 Completed Not Available [facility] 3 07:46:11 Swelling of breast 445696340 Completed Not Available [facility] 3 07:46:11 Osteopeni a 099058936 Active Not Available [facility] 3 02:09:54 Depressiv e disorder 29019103 Completed Not Available [facility] 3 07:46:11 Osteoarth ritis 636002228 Active Not Available [facility] 3 02:09:54 Attention deficit hyperacti vity disorder 316033197 Active Not Available [facility] 3 02:09:54 Esophagea l dysphagia 84071343 Active 2018 Not Available [facility] 3 02:09:54 Degenerat jenifer disorder of macula 641365564 Active Not Available [facility] 3 02:09:54 Congestiv e heart failure 82312705 Active Not Available [facility] 3 02:09:54 Anxiety 13110111 Active Not Available [facility] 3 02:09:54 Pain of breast 04091360 Completed Not Available [facility] 3 07:46:12 Schizophr enia 07077075 Active 2018 Not Available [facility] 3 02:09:54 Essential hypertens ion 53613893 Active Not Available [facility] 3 02:09:54 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 Not Available [facility] 3 02:09:54 COVID-19 486105396 Active 2020 Not Available [facility] 3 02:09:54 Posterior rhinorrhe a 27813333 Active 2022 Not Available [facility] 3 02:09:54 Nicotine dependenc e 31501550 Active 2022 Not Available [facility] 3 02:09:54 Syncope 547140601 Active 2022 Not Available [facility] 3 02:09:53 Ventral incisiona l hernia 757670588 Active 2023 MARZENA Calixto null, [place] [facility] 4 15:52:04 Chronic constipat ion 245241451 Active 2023 MARZENA Calixto null, [place] [facility] 4 10:08:43 Hernia of anterior abdominal wall 677525235 Active 2024 Dai zavaleta MD [address], [address], [place], [address] , [facility] 5 15:13:20 Moderate recurrent major depressio n 07968281 Active 2024 Dai zavaleta MD [address], [address], [place], [address] , [facility] 5 15:17:56 Chronic cough 26006101 Active 2024 Ken Bates MD [address], [address], [place], [address] , [facility] 5 15:09:49 Low back pain 475375495 Active 2024 MARZENA Sol null, [place] [facility] 5 17:17:36 Pain of right knee region 53852196090 4105 Active 2024 MARZENA Sol null, [place] [facility] 5 14:41:17 Type 2 diabetes mellitus 78853335 Active 2024 Luis Luevano DPM [address], [address], [place], [address] , [employer] [facility] [employer] [facility] 17:21:16 Dystrophi a unguium 92144655 Active 2024 Luis Luevano DPM [address] [facility], [facility] [address], [place], [address] , [employer] [facility] [employer] [facility] 17:21:26 Notes:Medical History: Synco pe Anxiety/ADHD/Schizophrenia/Bipolar depression [...] scoliosis Lumbar DDD Osteopenia Procedure History: T&A 1973 Cholecystectomy 1999 Exploratory laparotomy 2005 Surgical mesh placement 2005 OFE-BSO 2021 Colonoscopy with polypectomy 2023 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 Procedures Surgical History Date Name Laterality Status Provider Name and Address Organization Details Recorded Time 09/04/19 25 Nail Debridement completed Luis Luevano DPM [address] [facility], [facility] [address], [place], [address], [employer] 09/03/2024 17:20:45 09/03/19 21 Hernia repair w/mesh completed Not Available [facility] 06/01/2022 07:41:20 04/25/19 14 Repair of stomach lesion completed Not Available [facility] 06/01/2022 07:41:20 04/25/19 14 Omental flap intra-abdom completed Not Available [facility] 06/01/2022 07:41:20 Hysterectomy completed Angela Smith Naila [employer] [facility] [employer] 07/02/2024 15:02:25 Cholecystectomy completed Angela Smith Naila [facility] [employer] [facility] 07/02/2024 15:02:32 Colon Resection completed Angela Smith Naila [facility] [employer] 07/02/2024 15:02:43 Imaging Results None recorded. Procedure Notes None recorded. Medical Equipment None Reported. Allergies Allergen ID Allergen Name Allergen Category Reaction Reaction Severity Criticality Documentation Date Start Date Code Code System Note Provider Name and Address Organization Details Recorded Time 17769 Oxycontin medicatio n itching severe Not available 06/01/2022 67382 6 RxNorm Not Available [facility] 3 07:51:17 Medications Name Sig Start Date Stop [...] administe red by the provider 09/12 completed [facility][NOTE 3]: 0003- 0494- 20 Not Available Not Available [...] bromide 42 mcg (0.06 %) nasal spray [place] 1 spray 4 times a day by [...] Body weight Body temperature Heart rate Systolic And Diastolic Provider Name and Address Organization Details Last Updated DateTime 5 154.94 cm 34.2 kg/m2 45649.2 2 g 97.9 [degF] 100 /min 138/60 mm[Hg] Angela Smith [facility] [employer] [facility] 5 15:04:36 Date Recorded Body height Body mass index (BMI) Body weight Heart rate Oxygen saturation Oxygen saturation in Arterial blood by Pulse oximetry Systolic And Diastolic Provider Name and Address Organization Details Last Updated DateTime 5 154.94 cm 34.6 kg/m2 28462.4 g 98 /min 98 % 98 % 136/62 mm[Hg] Fuad Padilla [facility] [employer] [facility] 5 12:44:53 Date Recorded Body height Body mass index (BMI) Body weight Body temperature Heart rate Systolic And Diastolic Provider Name and Address Organization Details Last Updated DateTime 5 154.94 cm 33.8 kg/m2 03822.0 3 g 97.9 [degF] 90 /min 144/84 mm[Hg] Angela Smith [facility] [employer] [facility] 5 16:40:37 Date Recorded Heart rate Heart rate Respiratory rate Provider Name and Address Organization Details Last Updated DateTime 08/12/2024 77 /min 77 /min 15 /min Ken Bates MD [address] [place] [address], [address], [facility] [employer] [facility] 08/12/2024 15:41:24 Date Recorded Body height Body mass index (BMI) Body weight Body temperature Oxygen saturation Oxygen saturation in Arterial blood by Pulse oximetry Systolic And Diastolic Provider Name and Address Organization Details Last Updated DateTime 5 154.94 cm 34.4 kg/m2 85176.8 1 g 98.5 [degF] 98 % 98 % 130/66 mm[Hg] Radha Linares MA [facility] [employer] [facility] 5 15:27:32 Date Recorded Body height Body mass index (BMI) Body weight Oxygen saturation Oxygen saturation in Arterial blood by Pulse oximetry Body temperature Heart rate Systolic And Diastolic Provider Name and Address Organization Details Last Updated DateTime 154.94 cm 34.4 kg/m2 79662.8 1 g 96 % 96 % 98.6 [degF] 91 /min 135/84 mm[Hg] Zia Hastings MARZENA [employer] 16:51:29 Social History Question Answer Notes LastModified by Organizat ion Details LastModified Time Tobacco Smoking Status Current Every Day Smoker Sushila Jha [employer] [facility] 11/10/2022 12:48:15 Do You Have An Advance Directive? No Information not available 07/02/2024 What Is Your Level Of Caffeine Consumption? Occasional [id number] Information not available 06/01/2022 In The 14 [...] Do You Have A Medical Power Of Nib Finisher? No Information not available 07/02/2024 Do You Have Moisture Problems In Your Home? No Information not available 11/10/2022 What Was The Date Of Your Most Recent Tobacco Screening? 09/03/2024 [email or web address] Information not available 09/03/2024 Do You Have Any Pets? Yes Information not available 11/10/2022 What Is Your Relationship Status? [id number] Information not available 06/01/2022 Do You Use [...] is your level of alcohol consumption? None [id number] Information not available 06/01/2022 Do you or have you ever used smokeless tobacco? Never used smokeless tobacco [id number] Information not available 06/01/2022 Are you currently employed? No Information not available 07/02/2024 Have you been exposed to chemicals or toxins? Yes Just living in town Information not available 11/10/2022 What is your occupation? Disabled Information not available 11/10/2022 Do you or have you ever used e-cigarettes or vape? Never used electronic cigarettes Information not available 11/10/2022 What is your exercise level? Occasional [id number] [id number] Information not available 06/01/2022 Mental Status Question Answer Note LastModified by Organization D etails LastModified Time Do you feel stressed (tense, restless, nervous, or anxious, or unable to sleep at night)? [id number] Information not available 11/10/2022 Family History Relationship Description Onset Age of this Age Resolved Age Notes LastModified by Organization Details LastModified Time Mother Diabetes mellitus [id number] Not available 06/01/2022 07:41:23 Mother Hypertensive disorder [id number] [id number] Not available 06/01/2022 07:41:23 Mother Heart disease [id number] [id number] Not available 06/01/2022 07:41:23 Sister Diabetes mellitus [email or web address] Not available 2022 14:29:57 Sister Malignant tumor of breast [email or web address] Not available 06/2024 16:32:14 Sister Cerebrovascu lar accident [email or web address] Not available 0 09/03/2024 16:32:14 Sister Hypertensive disorder [email or web address] Not available 2022 08:35:30 Brother Diabetes mellitus [email or web address] Not available 2022 14:30:10 Daughter Diabetes mellitus [id number] Not available 06/01/2022 07:41:23 Daughter Hearing loss [email or web address] Not available 09/03/2024 16:32:14 Daughter Meningitis [email or web address] Not av ailable 09/03/2024 16:32:14 Notes:family history of poly ps Medical History Condition Response ARTHRITIS Y GI PROBLEMS Y VASCULAR DISEASE Y DIZZINESS Y HEART DISEASE/HEART PROBLEMS Y SKIN PROBLEMS Y DIABETES, TYPE Y KIDNEY DISEASE Y HISTORY OF DRUG ABUSE Y HYPERTENSION Y HIGH CHOLESTEROL / HYPERLIPIDEMIA Y EYE PROBLEMS Y BLOOD CLOTS Y GERD/NAUSEA Y HEPATITIS / LIVER DISEASE Y OSTEOPOROSIS Y URINARY/BLADDER/KIDNEY PROBLEMS Y HAVE YOU BEEN HOSPITALIZED OR SEEN IN [facility] ER IN THE PAST YEAR ? Y Gynecological HistoryNo gynecological history recorded. Obstetrics History GPAL:G 4 P 3 0 0 0 Type Value Full Term 3 Total 4 Immunizations Vaccine Type Date Status Note Provider Nam e and Address Organization Details Recorded Time Influenza, split virus, quadrivalent, preservative 2 completed MARZENA Sol [place] [employer] [facility] [employer] [facility] 08/01/2024 16:36:36 COVID-19, mRNA, LNP-S, PF, 30 mcg/0.3 mL dose 2 completed MARZENA Sol [place] [employer] [facility] 08/01/2024 16:36:36 Tdap completed MARZENA Sol, [place] [facility] 08/01/2024 16:36:36 Past Encounters Encounter ID Performer Location Encounter Start Date Encounter Closed Date Diagnosis/Indication Diagnosis SNOMED-CT Code Diagnosis ICD10 Code Diagnosis Note [id number] Joseph smith MD S_[facility] General Surgery [address] [facility], [facility] [address] [place] [address] 08/27/2020 00:00:00 08/27/2020 13:07:41 [id number] Jin Morrell MD S_[address] [address] 10/20/2020 00:00:00 10/20/2020 09:53:00 [id number] _ATHN_MIGR ATION_1 _ATHENA_M IGRATION_ DEFAULT_1 _1 , 09/22/2021 00:00:00 09/22/2021 15:42:16 [id number] Pati Amezquita MD _ATHENA_M IGRATION_ DEFAULT_1 _1 , 09/23/2021 00:00:00 09/23/2021 09:30:03 [id number] [facility] _ATHENA_M IGRATION_ DEFAULT_1 _1 , 11/11/2021 00:00:00 11/11/2021 21:10:55 [id number] Jin Morrell MD [facility]_[address] [address] 02/22/2022 00:00:00 03/01/2022 15:37:20 [id number] Jin Morrell MD S_[address] [address] 03/08/2022 00:00:00 03/08/2022 09:47:46 [id number] Jin Morrell MD S_[address] [address] 04/05/2022 00:00:00 04/05/2022 10:42:15 [id number] Lakisha Alejandre NP [facility] [address] [facility], [address] [address] 12/24/2020 00:00:00 12/24/2020 20:17:[id number] [facility] Primary Care Parkeraliyn champion [address] [employer] [facility] [address] [place] [address] 08/19/2022 10:21:02 08/19/2022 11:27:33 Hyperglycemia due to type 2 diabetes mellitus 3989016696 61133 E11.65 New finding on yomiL6V 6.5 (07/20/22)D iscussed need for regular exercise, increase intake of water/vege tables/fib er. Decrease intake of carbs, especially white rice/pasta /flour/brady ad/sugar.P t to f/u with Dr. Amezquita (endocrino logy) as scheduled. Thyroid nodule 836874867 E04.1 Chronic, current status unknownDue for repeat thyroid u/s.Will forward results to Dr. Amezquita. Chronic ab dominal pain 622712620 R10.9 ChronicUnk nown etiology, visible abd distention on left side with palpable mass of abd.Differ entials include: constipati on, hernia, malignancy Will send for KUB and labsDiscus sed s/s that warrant emergency evaluation in the meantime. Cigarette smoker 9904702 7 F17.210 Encouraged smoking cessation. Smoking cessation counseling and techniques reviewed at length with pt. Literature reviewed. Avoid triggers, support groups. Discussed cessation options (counselin g, medication s, e-cigarett es, patches, alternativ e therapies) . Discussed Rx options if needed in the future. Chronic cough 09783948 R 05.3 Z86.16 ChronicSmo ker and hx of covid x 2Will refer to pulmonary for further evaluation for possible copd. New rx for rescue inhaler given in the meantime. Urinary symptoms 3309527 08 R39.9 Pt c/o foamy urine. Denies any pain with urination, blood or odor.Will send for UA reflex cultureIf UA wnl, will consider referral to urology. [id number] OZZIE Mann [facility] Primary Care [place] [address] [employer] [facility] [address] [place] [address] 09/02/2022 09:04:02 09/02/2022 12:22:54 Hyperglycemia due to type 2 diabetes mellitus [id number] 46400 E11.65 Finding on most recent labs.A1C 6.5 (07/20/22)D iscussed need for regular exercise, increase intake of water/vege tables/fib er. Decrease intake of carbs, especially white rice/pasta /flour/brady ad/sugar.P t to f/u with Dr. Amezquita (endocrino logy) as scheduled. Chronic ab dominal pain 731265115 R10.9 ChronicUnk nown etiology, visible abd distention on left side with palpable mass of abd. Suspicious for constipati on/obstipa tion.Await ing imaging results.Di scussed s/s that warrant emergency evaluation in the meantime. Chronic cough 68678809 R 05.3 Z86.16 ChronicSmo ker and hx of covid x 2Referred to pulmonary for further evaluation for possible copd, keep upcoming appt with Dr. Bates. on 09/12/22. Continue with rescue inhaler as directed. Urinary symptoms 1847118 08 R39.9 Pt c/o foamy urine. Denies any pain with urination, blood or odor.UA had no indication of culture. Suspect pts sx are d/t excessive intake of soda. Encouraged pt to increase water intake, decrease intake of soda and caffeinate d beverages. Thyroid nodule 530850505 E04.1 Chronic, current status unknownAwa iting u/s results.Wi ll forward results to Dr. Amezquita. Cigarette smoker 3097471 7 F17.210 Encouraged smoking cessation. Smoking cessation counseling and techniques reviewed at length with pt. Literature reviewed. Avoid triggers, support groups. Discussed cessation options (counselin g, medication s, e-cigarett es, patches, alternativ e therapies) . Discussed Rx options if needed in the future. Screening mammography 24 166415 Z12.31 [id number] Ken Bates MD [facility] Pulmonolo gy [address] [address] 09/12/2022 13:35:14 09/12/2022 16:38:37 Chronic cough 03783814 R05.3 R06.00 T78.40XA D89.9 Posterior rhinorrhea 758 10447 R09.82 Nicotine dependence 5629 4008 F17.218 F17.219 Z87.891 [id number] Priyanka DonaldsonOZZIE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
--- NOTE | 2024-10-08 07:38 | SUR.OPER ---
Pt has not arrived for procedure at scheduled time. LM on VM.
--- NOTE | 2024-10-08 09:07 | SUR.PREOP ---
829 Called patient this am to check to see if patient was coming in for her procedure today. Was unable to reach her but left a VM on her phone requesting a return call. I did speak with her on October 03 and moved her procedure time up because of a cancellation on our end. Patient at that time voiced understanding and was agreeable to come in early on 10/08/24. 899 Tried calling patient again with no answer. Called next of kin Daughter and was unable to reach her. 904 Called her son Cj so he was aware that she didn't show up for her appointment but told him we wanted to check the she was ok since we haven't been able to reach her. Explained that sometime patients can get dizzy from prep and fall and we just wanted to make sure she was ok. He said he would try to reach her and thanked me for reaching out to him. I asked that his Mom or him call us to let us know that she is ok and he voiced understanding.
--- NOTE | 2024-10-08 12:47 | SUR.PREOP ---
Tried calling patient again. No answer.
--- OUTSIDE RECORDS SUMMARY | 2025-01-01 03:40 | XMS_ITS | Clinical Summary ---
Author Organization [facility] Address [address] [place] [address] Care Team Providers Care Setter Out Name Role Phone Unavailable Primary Care Provider Unavailabl e Source Comments [facility],non-owned Affiliates and Associated Physician Practices is amultiple site organization consisting of ambulatory clinics and hospital sitesin [place], [place], [place] and [place]. This disclosure is being madepursuant to the Care Everywhere program and may not contain all information available regarding this patient. Last updated 17.[facility] Allergies Active Allergy Reactions Criticality Noted Date [...] on file Legal Sex Female 5:21 PM NEURODIAGNOSTIC TECH Gender Identity Not on file Sexual Orientation Not on file Last Filed Vital Signs Vital Sign Reading Time Taken Comments Blood Pressure 150/85 03/08/2016 8:07 AM NEURODIAGNOSTIC TECH Pulse 96 03/08/2016 8:07 AM NEURODIAGNOSTIC TECH Temperature 37.1 C (98.8 F) 07/02/2015 11:57 AM CDT Respiratory Rate 18 03/08/2016 8:07 AM NEURODIAGNOSTIC TECH Oxygen Saturation 93% 07/02/2015 11:57 AM CDT Inhaled Oxygen Concentration - - Weight 85.8 kg (189 lb 4 oz) 03/08/2016 8:07 AM NEURODIAGNOSTIC TECH Height 165.1 cm (5' 5) 03/08/2016 8:07 AM NEURODIAGNOSTIC TECH Body Mass Index 31.49 03/08/2016 8:07 AM NEURODIAGNOSTIC TECH Plan of Treatment Health Maintenance Due Date [...] 11/30/2013 ZOSTER VACCINE (1 of 2) 11/30/2013 DEPRESSION SCREENING 04/03/2024 COVID-19 VACCINE (1 - 2023-2 5 season) 2024 INFLUENZA VACCINE (#1) 2024 01/31/2022 Respiratory Syncytial [...]
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
--- OUTSIDE RECORDS SUMMARY | 2025-01-01 03:40 | XMS_ITS | Clinical Summary ---
Author Organization [facility] Address [address] [address] Phone Care Team Providers Care Research Methodologist Name Role Phone Rodriguez Elmore MD Primary Care Provider [phone] Allergies Active Allergy Reactions Criticality Noted Date [...] 11/30/2013 Zoster Immunization (1 of 2) 11/30/2013 Influenza Immunization (#1) 2024 SARS-COV-2 Immunization (2 - season) 2024 04/04/2021 Respiratory Syncytial Virus (RSV) Immunization (Adult) (1 [...] topic Insurance MEDICARE [place]ICAID [place] Care Teams Research Methodologist Relationship Specialty Start Date End Date Rodriguez Elmore MD [address] [address] PCP - General Family Medicine 10/10/16
--- OUTSIDE RECORDS SUMMARY | 2025-01-01 03:40 | XMS_ITS | Patient Health Record ---
Author Organization [facility] [employer] Address [address] [place] [address] Care Team Providers Care Computer Systems Manager Name Role Phone [facility]d [facility] Primary Care Provider Eliana Suni Moctezuma Unavailable [phone] Allergies Allergen (clinical drug ingredient) Drug/Non Drug Allergy documented on EMR Reaction Allergy Type Onset Date Status oxycodone OxyCONTIN Unknown Drug Allergy Active Reason For Referral No Information Medications Medication SIG (Take, Route, Frequency, Duration) Notes Start Date End Date Status ProAir HFA 108 (90 Base) MCG/ACT Aerosol Solution Inhalation Act jenifer Atorvastatin Calcium 40 MG Tablet Oral Active amLODIPine Besylate 5 MG Tablet Oral Active Ipratropium Creole 0.06 % Solution Nasal Active tiZANidine HCl 2 MG Tablet Oral Active predniSONE 10 MG Tablet Oral Active Losartan Potassium-HCTZ 100-25 MG Tablet Oral Active Desvenlafaxine Succinate ER 50 MG Tablet Extended Release 24 Hour Oral Active metFORMIN HCl ER 500 MG Tablet Extended Release 24 Hour Oral Active Suprep Bowel Prep Kit 17.5-3.13-1.6 GM/177ML Solution Oral Active Diclofenac Sodium 75 MG Tablet Delayed Release Oral Activ e Nitrofurantoin Monohyd Macro 100 MG Capsule Oral Active OneTouch Verio Strip In Vitro Active OneTouch Delica Plus [id number] Miscellaneous Acti ve Social History Sex Assigned At : Social History Observation Description Sex Assigned At Female Encounters Encounter Location Date Provider Diagnosis [facility] [employer] [facility] [address] [place] [address] 02/22/2024 Suni Griggs Plan Of Treatment No Information Insurance Providers Payer Name Payer Address Payer Phone Subscriber Number Group Number Insured Name Patient Relationship to Insured Coverage Start Date Coverage End Date [employer] Medicare Replacement/ Advantage - Ppo [address] [address] [place] [address] [id number] MONY LUKE Self - patient is the insured [place] [address] [address] [place] [address] [id number] MONY LUKE Self - patient is the insured
--- OUTSIDE RECORDS SUMMARY | 2025-01-01 03:40 | XMS_ITS | Clinical Summary ---
Author Organization [facility] Address [address] [place] [address] Care Team Providers Care Lens Molder Name Role Phone Tae Muro MD Primary [...] 2003 Zoster Vaccines (1 of 2) 11/30/2013 PHQ-2 (Physician [place]) 04/03/2024 COVID-19 Vaccine (1 - 2023-2 5 season) 2024 RSV Immunization or 60+ Years (1 - [...] topic Insurance MEDICARE MEDICAID MEDICAID Care Teams Lens Molder Relationship Specialty Start Date End Date Tae Muro MD PCP - General FAMILY PRACTICE 09/25/18 Elias Acosta MD [address] [address] Referring Physician VASCULAR SURGERY 09/25/18
[2025-01-01 10:00] VITALS: BP 136/72; PULSE 79; RESP 18; TEMP 36.5; O2SAT 96
[2025-01-01] MEDS: SIMETHICONE ORAL SUSPENSION 20 MG/0.3 ML 30 ML BOTTLE 1.8 ML PO (10:08)
[2025-01-01] MEDS: LACTATED RINGERS 1,000 ML 150 ML IV CONT (10:20)
--- NOTE | 2025-01-01 10:22 | WPDANESEPPF ---
Anes - Initial Pre Proc Eval Procedure: Operation Date: 01/01/25 11:00 Proposed Procedures p Esophagogastroduodenoscopy&Screen Colon - David Reis MD Date/Time: 01/01/25 10:22 Surgeon: David Reis MD Pre Op Diagnosis: Encounter for screening for malignant neoplasm of Patient Data Age: 59 Gender: F Height: 1.63 m Weight: 78.1 kg Last Vital Signs Temp 36.5 C 01/01/25 10:00 Pulse 79 01/01/25 10:00 Resp 18 01/01/25 10:00 BP 136/72 01/01/25 10:00 Pulse Ox 96 01/01/25 10:00 O2 Del Method Room Air 01/01/25 10:00 Allergies Allergy/AdvReac Type Severity Reaction Status Date / Time oxycodone Allergy Unknown Itching Verified 01/01/25 09:59 Home Medications ?Medication ?Instructions ?Recorded ?Confirmed ?Type amlodipine 10 mg tablet (Norvasc) 10 mg PO DAILY 08/14/23 01/01/25 History atorvastatin 40 mg tablet (Lipitor) 40 mg PO DAILY 08/14/23 12/17/24 History clonazepam 1 mg tablet (Klonopin) 1 mg PO DAILY 08/14/23 12/17/24 History desvenlafaxine succinate 100 mg 100 mg PO DAILY 08/14/23 12/17/24 History tablet,extended release 24 hr (Pristiq) dextroamphetamine-amphetamine 20 20 mg PO DAILY 08/14/23 01/01/25 History mg tablet (Adderall) herbal drugs 1 tablet PO DAILY 08/14/23 12/17/24 History linaclotide 290 mcg capsule 290 mcg PO DAILY 08/14/23 12/17/24 History (Linzess) losartan 100 mg tablet 100 mg PO DAILY 08/14/23 12/17/24 History metformin 500 mg tablet 500 mg PO DAILY 08/14/23 12/17/24 History furosemide 20 mg tablet 20 mg PO BID 09/13/24 12/17/24 History ibuprofen 800 mg tablet 800 mg PO TID #60 tabs 09/13/24 12/17/24 Rx potassium chloride 20 mEq oral 20 meq PO DAILY 12/17/24 12/17/24 History packet (Klor-Con) turmeric 400 mg capsule 400 mg PO DAILY 12/17/24 12/17/24 History ondansetron HCl 4 mg tablet 4 mg PO Q6H PRN nausea and 12/19/24 Rx vomiting #4 tabs sodium sul 1.479 gram-potas ch See Rx Instructions PO .COMPLEX 12/19/24 Rx 0.188 gram-magnes sul 0.225 gram #24 tabs tablet (Sutab) Laboratory Tests 01/01/25 10:15 POC Capillary Glucose 128 H mg/dl (65-105) Patient hx anesthesia problems: none Family hx anesthesia problems: none Results Review: All pre-operative results and documents have been reviewed as part of the pre-operative evaluation. [facility] Past Medical History Medical History Thyroid disorder Kidney disease IBS (irritable bowel syndrome) Hypertension Diabetes CHF (congestive heart failure) CAD (coronary artery disease) Hx of blood clots Arthritis Anxiety Surgical History Surgical History (Updated 01/01/25 @ 10:22 by Shon Mahan MD) H/O exploratory laparotomy Hx of hernia repair Family History Family History Mother Hypertension Family history of diabetes mellitus in first degree relative Family history of coronary artery disease Sibling Hypertension Family history of diabetes mellitus in first degree relative Cerebrovascular accident Other Family history of cardiovascular disease Family history of malignant neoplasm Social History Social History Years smoked: 30 Smoking status: Current every day smoker Tobacco type: cigarettes Alcohol intake: never Substance use: never Substance use type: does not use Do You Feel Safe in your Home?: Yes Lack of Transportation: No Lack of Food: Never True Current Housing: I Have Housing Concerned About Future Housing: No Difficulty Paying Gas/Electric Bills: No Difficulty Paying for Meds: No Currently Unemployed: No Education: Trade/Vocational Certificate Difficulty w/ Childcare or Family Care: No Living arrangements: with family Spiritual care concerns: No Anes - Eval Final PreProcedure Day of Procedure 01/01/25 10:22 Patient weight: overweight Heart: regular rate and rhythm Lungs: clear to auscultation Airway: Mallampati scale class II Neurological: alert and oriented Last oral intake: >/= 8 hours ASA classification: III Emergent: no Anesthetic plan: proceed Anesthesia type and monitoring: general GIVS and standard monitoring Results Review: All pre-operative results and documents have been reviewed as part of the pre-operative evaluation. Informed Consent: The patient's anesthetic plan and its attendant risks and benefits were discussed with the patient/family/POA. Questions were solicited and answers provided to the satisfaction of the patient/family/POA.
--- NOTE | 2025-01-01 11:23 | PM.IMHP ---
H&P: HPI History of Present Illness Date/Time: 01/01/25 11:23 Chief Complaint: History of colon polyps-dysphagia Narrative: The patient has a history of colonic polyps, the last colonoscopy was about 5 years ago. In addition the patient is complaining of intermittent dysphagia to solids. She is now referred for EGD and colonoscopy. 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 Review of Systems Review of Systems: All systems reviewed & are unremarkable except as noted in HPI and below PMFSH Past Medical History Medical History (Updated 01/01/25 @ 11:24 by David Reis MD) Thyroid disorder Kidney disease IBS (irritable bowel syndrome) Hypertension Diabetes CHF (congestive heart failure) CAD (coronary artery disease) Hx of blood clots Arthritis Anxiety Surgical History Surgical History (Updated 01/01/25 @ 10:22 by Shon Mahan MD) H/O exploratory laparotomy Hx of hernia repair Family History Family History Mother Hypertension Family history of diabetes mellitus in first degree relative Family history of coronary artery disease Sibling Hypertension Family history of diabetes mellitus in first degree relative Cerebrovascular accident Other Family history of cardiovascular disease Family history of malignant neoplasm Social History Social History Years smoked: 30 Smoking status: Current every day smoker Tobacco type: cigarettes Alcohol intake: never Substance use: never Substance use type: does not use Do You Feel Safe in your Home?: Yes Lack of Transportation: No Lack of Food: Never True Current Housing: I Have Housing Concerned About Future Housing: No Difficulty Paying Gas/Electric Bills: No Difficulty Paying for Meds: No Currently Unemployed: No Education: Trade/Vocational Certificate Difficulty w/ Childcare or Family Care: No Living arrangements: with family Spiritual care concerns: No Meds Home Medications and Allergies Home Medications ?Medication ?Instructions ?Recorded ?Confirmed ?Type amlodipine 10 mg tablet (Norvasc) 10 mg PO DAILY 08/14/23 01/01/25 History atorvastatin 40 mg tablet (Lipitor) 40 mg PO DAILY 08/14/23 12/17/24 History clonazepam 1 mg tablet (Klonopin) 1 mg PO DAILY 08/14/23 12/17/24 History desvenlafaxine succinate 100 mg 100 mg PO DAILY 08/14/23 12/17/24 History tablet,extended release 24 hr (Pristiq) dextroamphetamine-amphetamine 20 20 mg PO DAILY 08/14/23 01/01/25 History mg tablet (Adderall) herbal drugs 1 tablet PO DAILY 08/14/23 12/17/24 History linaclotide 290 mcg capsule 290 mcg PO DAILY 08/14/23 12/17/24 History (Linzess) losartan 100 mg tablet 100 mg PO DAILY 08/14/23 12/17/24 History metformin 500 mg tablet 500 mg PO DAILY 08/14/23 12/17/24 History furosemide 20 mg tablet 20 mg PO BID 09/13/24 12/17/24 History ibuprofen 800 mg tablet 800 mg PO TID #60 tabs 09/13/24 12/17/24 Rx potassium chloride 20 mEq oral 20 meq PO DAILY 12/17/24 12/17/24 History packet (Klor-Con) turmeric 400 mg capsule 400 mg PO DAILY 12/17/24 12/17/24 History ondansetron HCl 4 mg tablet 4 mg PO Q6H PRN nausea and 12/19/24 Rx vomiting #4 tabs sodium sul 1.479 gram-potas ch See Rx Instructions PO .COMPLEX 12/19/24 Rx 0.188 gram-magnes sul 0.225 gram #24 tabs tablet (Sutab) Allergies Allergy/AdvReac Type Severity Reaction Status Date / Time oxycodone Allergy Unknown Itching Verified 01/01/25 09:59 Vital Signs Vital Signs - 24 hr 01/01/25 10:00 Temperature 97.7 F Pulse Rate 79 Respiratory Rate 18 Blood Pressure 136/72 Pulse Oximetry 96 Oxygen Delivery Room Air Exam Const: General: cooperative and healthy appearing Resp: Effort & Inspection: normal respiratory effort and able to speak in complete sentences Auscultation: clear to auscultation bilaterally Cardio: Rate: regular rate Rhythm: regular rhythm GI: Inspection: normal to inspection GI Palp: No No hepatosplenomegaly present Auscultation: normal bowel sounds Rectal Exam: deferred Skin: General skin exam: normal color Psych: Appearance: grossly normal Mental Status: mental status grossly normal Assessment and Plan Assessment and plan (1) Dysphagia: Code(s): R13.10 - Dysphagia, unspecified Status: Acute Assessment and Plan: The patient is deemed a good candidate for the procedure. Consent signed. Will proceed.
--- NOTE | 2025-01-01 11:39 | S_PTH ---
PATIENT: Monika Alexander LOC: [facility] U#:[id number] AGE/SX: 59/F ROOM: RE01/01/[address]: David Reis MD : 1965 BED: DIS: 01/01/2025 SPEC #: [id number] RECD: 01/01/25 12:42 STATUS: RENETTA REQ #: [id number] FAISAL: 01/01/25 11:[address]: David Reis DEPT: [facility] Surgical RECD BY: Prashant Gonzalez ENTERED: 01/01/25 12:43 SP TYPE: Surgical OTHR DR: Dai YusufMD Tissues: A - Gastric Biopsy B - Gastric Biopsy C - Esophageal Biopsy D - Colon Polypectomy E - Colon Polypectomy F - Colon Polypectomy Procedures: Pas with Diastase Grocotts Methenamine Stain Hematoxylin and Eosin Stain Gross and Microscopic Level 4
--- NOTE | 2025-01-01 11:45 | SUR.OPER ---
EGD TIME [id number], COLONOSCOPY START TIME 1146
[2025-01-01 12:19] VITALS: BP 102/57; PULSE 66; RESP 19; O2SAT 100
[2025-01-01 12:29] VITALS: BP 106/61; PULSE 69; RESP 23; O2SAT 96
[2025-01-01 12:39] VITALS: BP 129/69; PULSE 70; RESP 20; O2SAT 97
== END 2025-01-01 12:50 | disposition home or self-care (01) ==
PROVIDERS: PCP Internal Medicine; Visit Provider Internal Medicine Gastroenterology
PROC: 0DJ08ZZ Inspection of Upper Intestinal Tract, Via Natural or Artificial Opening Endoscopic (ICD-10-PCS; CPT 45378; principal; 2025-01-01 11:00)
DX: Z12.11 Encounter for screening for malignant neoplasm of colon (principal); D12.2 Benign neoplasm of ascending colon; D12.4 Benign neoplasm of descending colon; D12.3 Benign neoplasm of transverse colon; K20.80 Other esophagitis without bleeding; K29.30 Chronic superficial gastritis without bleeding; K44.9 Diaphragmatic hernia without obstruction or gangrene; E11.9 Type 2 diabetes mellitus without complications; I11.0 Hypertensive heart disease with heart failure; I50.9 Heart failure, unspecified; I25.10 Atherosclerotic heart disease of native coronary artery without angina pectoris; K58.9 Irritable bowel syndrome, unspecified; F41.9 Anxiety disorder, unspecified; E07.9 Disorder of thyroid, unspecified; N28.9 Disorder of kidney and ureter, unspecified; M19.90 Unspecified osteoarthritis, unspecified site; F17.210 Nicotine dependence, cigarettes, uncomplicated; Z79.84 Long term (current) use of oral hypoglycemic drugs; Z79.1 Long term (current) use of non-steroidal anti-inflammatories (NSAID); Z98.890 Other specified postprocedural states; Z80.9 Family history of malignant neoplasm, unspecified; Z82.49 Family history of ischemic heart disease and other diseases of the circulatory system
CPT/HCPCS: 43239; 45385; 82948; 88305; 88312; 88313; J2003; J2704; J7120

== ENCOUNTER 2025-03-11 12:48 | Outpatient (CLI) | payer MEDICARE, MEDICAID, SELFPAY ==
--- NOTE | ~2025-03-11 | CT_ITS ---
EXAMINATION: CT abdomen pelvis wo con DATE: 03/11/2025 13:09 INDICATION: History of incisional hernia with obstruction. TECHNIQUE: Computed tomography (CT) of the abdomen and pelvis was performed without intravenous contrast. Automated exposure control and iterative reconstruction technique were employed. The dose-length product was 369.17 mGy-cm. COMPARISON: CT abdomen pelvis without contrast dated 08/18/2023. FINDINGS: Lung bases do not show acute findings. Within the upper abdomen, no focal lesions of liver and spleen. Gallbladder is surgically absent. Pancreas shows no acute findings. Stable small calcified granuloma of the spleen. In addition, a ring-shaped calcific density is noted in the upper left abdomen, 3 cm in diameter unchanged in appearance from 08/18/2023. Kidneys do not show calculi are obstruction. No evidence of small bowel obstruction. Ventral hernia is noted in the mid abdomen above the umbilicus containing a loop of transverse colon. No bowel obstruction is seen. This is unchanged in appearance from prior CT. Normal size appendix. Diverticula of sigmoid colon without inflammatory changes. No pelvic mass or fluid collections are seen. Significant degenerative disc disease in the lumbar spine at L5-S1 level. IMPRESSION: 1. CT without contrast is not optimal to evaluate solid viscera, neoplasms and vascular structures. 2. Postoperative changes of cholecystectomy, hysterectomy. 3. Large ventral hernia in the supraumbilical region in the midline containing a loop of transverse colon. No evidence of mechanical bowel obstruction. 4. 3 cm size calcified ring-shaped density in the upper left abdomen similar in appearance to prior study. Exact nature of this lesion is unclear. Possible calcified foreign object. This lesion is unchanged in appearance from previous CT examination. 5. Severe degenerative disc disease of lumbar spine as described above predominantly at L1-2 level. Reviewed, dictated and finalized at location T. [employer] IMPRESSION: 1. CT without contrast is not optimal to evaluate solid viscera, neoplasms and vascular structures. 2. Postoperative changes of cholecystectomy, hysterectomy. 3. Large ventral hernia in the supraumbilical region in the midline containing a loop of transverse colon. No evidence of mechanical bowel obstruction. 4. 3 cm size calcified ring-shaped density in the upper left abdomen similar in appearance to prior study. Exact nature of this lesion is unclear. Possible ca lcified foreign object. This lesion is unchanged in appearance from previous CT examination. 5. Severe degenerative disc disease of lumbar spine as described above predomin antly at L1-2 level.
== END 2025-03-11 12:49 | disposition home or self-care (01) ==
PROVIDERS: PCP Internal Medicine; Visit Provider Surgery
DX: K43.0 Incisional hernia with obstruction, without gangrene (principal); K43.9 Ventral hernia without obstruction or gangrene; M51.369 Other intervertebral disc degeneration, lumbar region without mention of lumbar back pain or lower extremity pain
CPT/HCPCS: 74176